=== PATIENT | male | born 1975 | race Hispanic/Latino ===

== ENCOUNTER 2016-06-03 18:49 | Inpatient (IN) | payer SELFPAY ==
[2016-06-03] MEDS ORDERED: NACL 0.9% 1000 ML 1,000 ML IV ONE (19:26)
[2016-06-03] MEDS ORDERED: CARDIZEM IV ONE ×2 (19:26→20:06)
--- NOTE | 2016-06-03 19:34 | Emergency Department Report ---
ED Chest Pain HPI - General Chief Complaint: Chest Pain Stated Complaint: HX A-FIB/ CHEST PRESSURE /DIZZINESS Time Seen by Provider: 06/03/16 19:25 Source: patient Mode of arrival: Ambulatory Limitations: No Limitations - History of Present Illness Initial Comments: 41-year-old male with history of hypertension, atrial fibrillation not on anticoagulation, CHF, chronic tobacco use presenting today because of palpitations. Patient states that the palpitations started yesterday morning and have been on-and-off and associated with some chest pain. He denies any symptoms currently. He has not had any cough or fever associated with this. No diaphoresis or shortness of breath. At triage he was found to be tachycardic. - Related Data Home Medications Medication Instructions Recorded Confirmed Last Taken Aspirin EC [Aspirin Enteric Coated 325 mg PO QDAY 04/03/15 06/03/16 05/14/15 TAB] Previous Rx's Medication Instructions Recorded Last Taken Type Carvedilol [Coreg] 25 mg PO Q12HR #60 tablet 04/08/15 05/12/15 Rx Furosemide [Lasix TAB] 40 mg PO 0600,1800 #60 tablet 04/08/15 05/14/15 Rx NIFEdipine XL [Procardia Xl] 60 mg PO QDAY #30 tablet 04/08/15 05/12/15 Rx Potassium Chloride [K-Dur] 20 meq PO QDAY #30 tablet 04/08/15 05/12/15 Rx Valsartan [Diovan] 160 mg PO DAILY #30 tablet 04/08/15 05/12/15 Rx Ferrous Sulfate [Feosol 325 MG tab] 325 mg PO BID #60 tablet 05/15/15 Unknown Rx Allergies Allergy/AdvReac Type Severity Reaction Status Date / Time No Known Allergies Allergy Verified 04/03/15 08:05 CHIRAG score - Chirag Score Age > 65: (0) No Aspirin use within the Past 7 Days: (0) No 3 or more CAD Risk Factors: (1) Yes 2 or more Angina events in past 24 hrs: (1) Yes Known CAD with more than 50% Stenosis: (0) No Elevated Cardiac Markers: (0) No ST Deviation Greater than 0.5mm: (0) No CHIRAG Score: 2 ED Review of Systems ROS: Stated complaint: HX A-FIB/ CHEST PRESSURE /DIZZINESS Other details as noted in HPI Comment: All other systems reviewed and negative Constitutional: denies: chills, fever Respiratory: denies: cough Cardiovascular: chest pain, palpitations Gastrointestinal: denies: abdominal pain, vomiting Genitourinary: denies: dysuria Skin: denies: rash Neurological: denies: headache Psychiatric: denies: anxiety ED Past Medical Hx - Past Medical History Hx Hypertension: Yes Hx Congestive Heart Failure: Yes Hx Diabetes: No Additional medical history: Afib. MOE - Surgical History Past Surgical History?: No - Social History Smoking Status: Current Every Day Smoker Substance Use Type: None - Medications Home Medications: Home Medications Medication Instructions Recorded Confirmed Last Taken Type Aspirin EC [Aspirin Enteric Coated 325 mg PO QDAY 04/03/15 06/03/16 05/14/15 History TAB] Carvedilol [Coreg] 25 mg PO Q12HR #60 tablet 04/08/15 06/03/16 05/12/15 Rx Furosemide [Lasix TAB] 40 mg PO 0600,1800 #60 tablet 04/08/15 06/03/16 05/14/15 Rx NIFEdipine XL [Procardia Xl] 60 mg PO QDAY #30 tablet 04/08/15 06/03/16 Rx Potassium Chloride [K-Dur] 20 meq PO QDAY #30 tablet 04/08/15 06/03/16 05/12/15 Rx Valsartan [Diovan] 160 mg PO DAILY #30 tablet 04/08/15 06/03/16 05/12/15 Rx Ferrous Sulfate [Feosol 325 MG tab] 325 mg PO BID #60 tablet 05/15/15 06/03/16 Unknown Rx ED Physical Exam - General Limitations: No Limitations General appearance: alert - Head Head exam: Present: atraumatic - Eye Eye exam: Present: normal appearance - ENT ENT exam: Present: normal exam - Neck Neck exam: Present: normal inspection - Respiratory Respiratory exam: Present: normal lung sounds bilaterally. Absent: respiratory distress - Cardiovascular Cardiovascular Exam: Present: tachycardia, irregular rhythm - GI/Abdominal GI/Abdominal exam: Present: soft. Absent: distended, tenderness - Neurological Exam Neurological exam: Present: alert, oriented X3 - Psychiatric Psychiatric exam: Present: normal affect - Skin Skin exam: Present: intact. Absent: rash ED Course Vital Signs 06/03/16 06/03/16 06/03/16 19:14 19:18 19:21 Temperature 98.2 F Pulse Rate 153 H 159 H Respiratory 18 Rate Blood Pressure 196/130 196/130 O2 Sat by Pulse 93 96 93 Oximetry 06/03/16 06/03/16 06/03/16 19:31 19:41 19:49 Temperature Pulse Rate 149 H 148 H 154 H Respiratory 20 25 H Rate Blood Pressure 178/112 178/112 178/112 O2 Sat by Pulse 93 Oximetry 06/03/16 06/03/16 06/03/16 19:51 20:00 20:10 Temperature Pulse Rate 148 H 150 H 148 H Respiratory 12 15 Rate Blood Pressure 150/111 174/108 174/108 O2 Sat by Pulse 92 89 Oximetry 06/03/16 06/03/16 06/03/16 20:11 20:21 20:31 Temperature Pulse Rate 147 H 146 H 148 H Respiratory 15 10 L 14 Rate Blood Pressure 174/108 164/104 158/101 O2 Sat by Pulse 90 90 Oximetry 06/03/16 06/03/16 06/03/16 20:41 20:51 21:01 Temperature Pulse Rate 150 H 149 H 151 H Respiratory 12 17 17 Rate Blood Pressure 158/101 157/103 161/109 O2 Sat by Pulse 89 92 92 Oximetry 06/03/16 06/03/16 06/03/16 21:08 21:11 21:16 Temperature Pulse Rate 148 H 148 H Respiratory 14 20 Rate Blood Pressure 161/108 161/109 O2 Sat by Pulse 93 94 Oximetry 06/03/16 06/03/16 06/03/16 21:21 21:30 21:41 Temperature Pulse Rate 147 H 149 H 148 H Respiratory 12 15 15 Rate Blood Pressure 154/112 160/106 160/106 O2 Sat by Pulse 93 93 97 Oximetry 06/03/16 06/03/16 06/03/16 21:51 22:00 22:11 Temperature Pulse Rate 148 H 148 H 149 H Respiratory 13 14 12 Rate Blood Pressure 161/115 158/105 158/105 O2 Sat by Pulse 95 93 95 Oximetry 06/03/16 06/03/16 06/03/16 22:21 22:30 22:41 Temperature Pulse Rate 150 H 149 H 150 H Respiratory 20 16 20 Rate Blood Pressure 159/110 147/112 147/112 O2 Sat by Pulse 92 94 91 Oximetry 06/03/16 06/03/16 06/03/16 22:51 23:00 23:11 Temperature Pulse Rate 150 H 150 H 147 H Respiratory 13 19 21 Rate Blood Pressure 151/111 155/113 155/113 O2 Sat by Pulse 93 93 94 Oximetry 06/03/16 06/03/16 06/03/16 23:21 23:23 23:30 Temperature Pulse Rate 143 H 148 H 144 H Respiratory 14 14 Rate Blood Pressure 164/112 164/112 164/112 O2 Sat by Pulse 93 95 Oximetry 06/03/16 06/03/16 06/04/16 23:41 23:50 00:00 Temperature Pulse Rate 143 H 140 H 142 H Respiratory 12 14 27 H Rate Blood Pressure 151/99 134/99 135/99 O2 Sat by Pulse 95 93 93 Oximetry ED Medical Decision Making - Lab Data Result diagrams: 06/03/16 19:28 06/03/16 22:11 - Medical Decision Making IV, labs, ekg, monitor, IVF, cardizem IV ekg shows atrial flutter with rvr Patient given small bolus of IV fluids given his history of CHF, given a dose of Cardizem IV 20 mg followed by a dose of 25 mg, there was a brief episode of rate control with a heart rate around 100 after the second dose but came back up to 140s to 150s. Spoke to Dr. Garcia from Cardiology who recommended a 5 mg dose of IV metoprolol every 2 hours until rate is controlled and to admit the patient to the CCU under the hospitalist. Critical Care Time: Yes Critical care time in (mins) excluding proc time.: 30 Critical care attestation.: If time is entered above; I have spent that time in minutes in the direct care of this critically ill patient, excluding procedure time. ED Disposition Clinical Impression: Atrial flutter with rapid ventricular response Disposition: OP ADMITTED IP TO THIS HOSP Is pt being admited?: Yes Does the pt Need Aspirin: Yes Condition: Serious
[2016-06-03 19:41] LABS: Basophils % (Auto) 0.5 % (0.0-1.8); Eosinophils % (Auto) 0.4 % (0.0-4.3); Mean Corpuscular HGB Conc 31 % (32-34); Mean Corpuscular Volume 74 fl (84-94); Platelet Count 197 K/mm3 (140-440); Red Blood Count 7.76 M/mm3 (3.65-5.03); Red Cell Distribution Width 18.8 % (13.2-15.2); White Blood Count 12.6 K/mm3 (4.5-11.0)
[2016-06-03 19:55] LABS: Hematocrit 57.4 % (35.5-45.6); Hemoglobin 17.8 gm/dl (11.8-15.2); Mean Corpuscular Hemoglobin 23 pg (28-32)
[2016-06-03] MEDS ORDERED: NACL 0.9% 500 ML 500 ML IV ONE (20:05)
[2016-06-03 20:07] LABS: Anion Gap TNR mmol/L; Carbon Dioxide TNR mmol/L (22-30); Chloride TNR mmol/L (98-107); Potassium TNR mmol/L (3.6-5.0); Sodium TNR mmol/L (137-145)
[2016-06-03 20:08] LABS: Blood Urea Nitrogen TNR mg/dL (9-20)
[2016-06-03 20:09] LABS: BUN/Creatinine Ratio TNR; Calcium TNR mg/dL (8.4-10.2); Glucose TNR mg/dL (75-100)
[2016-06-03] MEDS: CARDIZEM/D5W 100MG/100ML 100 MG/100 ML BAG IV SCH (21:08)
[2016-06-03 22:51] LABS: Anion Gap 20 mmol/L; BUN/Creatinine Ratio 18.57; Blood Urea Nitrogen 13 mg/dL (9-20); Calcium 8.7 mg/dL (8.4-10.2); Carbon Dioxide 26 mmol/L (22-30); Chloride 97.6 mmol/L (98-107); Glucose 106 mg/dL (75-100); Potassium 3.7 mmol/L (3.6-5.0); Sodium 140 mmol/L (137-145)
[2016-06-03] MEDS ORDERED: LOPRESSOR IV ONE (23:17)
[2016-06-04] MEDS ORDERED: BABY ASPIRIN PO ONE (00:25)
[2016-06-04] MEDS: CARDIZEM PO SCH ×5 (00:31→23:57)
[2016-06-04] MEDS ORDERED: TYLENOL PO PRN (00:42)
[2016-06-04] MEDS ORDERED: DULCOLAX PR PRN (00:42)
[2016-06-04] MEDS ORDERED: ZOFRAN IV PRN (00:42)
[2016-06-04] MEDS ORDERED: MILK OF MAGNESIA PO PRN (00:42)
--- NOTE | 2016-06-04 00:48 | History and Physical Report ---
History of Present Illness Date of examination: 06/04/16 History of present illness: 41-year-old man with a history of hypertension, A. fib /flutter, CHF, polycythemia vera, obstructive sleep apnea comes emergency room with complaints of palpitation that started yesterday. Has palpitation was associated with chest pain which she described as a stress pain, intermittent in nature lasting for less than 5 minutes, no radiation, intensity 4/10. Admits to nausea, shortness of breath, and no vomiting, diaphoresis. Patient has not been on any medication in the year. Patient was found to be in a flutter with rapid ventricular rate at 150s, he was started on Cardizem drip Patient denies cough, abdominal pain, hematochezia, dysuria, frequency, focal weakness, dysarthria, fever chills, polydipsia polyuria, hot or cold intolerance , easy bruisability, or rash or bleeding from mucosal membrane, rhinorrhea, epistaxis, earache, tinnitus, blurry vision, eye discharge, anxiety, depression. Other review of systems negative PAST SURGICAL HISTORY: None SOCIAL HISTORY: Alcohol quite a pack a day, no alcohol or drugs FAMILY HISTORY: Hypertension Medications and Allergies Allergies Allergy/AdvReac Type Severity Reaction Status Date / Time No Known Allergies Allergy Verified 04/03/15 08:05 Home Medications Medication Instructions Recorded Confirmed Last Taken Type Aspirin EC [Aspirin Enteric Coated 325 mg PO QDAY 04/03/15 06/03/16 05/14/15 History TAB] Carvedilol [Coreg] 25 mg PO Q12HR #60 tablet 04/08/15 06/03/16 05/12/15 Rx Furosemide [Lasix TAB] 40 mg PO 0600,1800 #60 tablet 04/08/15 06/03/16 05/14/15 Rx NIFEdipine XL [Procardia Xl] 60 mg PO QDAY #30 tablet 04/08/15 06/03/16 Rx Potassium Chloride [K-Dur] 20 meq PO QDAY #30 tablet 04/08/15 06/03/16 05/12/15 Rx Valsartan [Diovan] 160 mg PO DAILY #30 tablet 04/08/15 06/03/16 05/12/15 Rx Ferrous Sulfate [Feosol 325 MG tab] 325 mg PO BID #60 tablet 05/15/15 06/03/16 Unknown Rx Active Meds: Active Medications Diltiazem HCl (Cardizem) 60 mg PO Q6HR MAITE Last Admin: 06/04/16 00:31 Dose: 60 mg Diltiazem HCl (Cardizem/D5w 100mg/100ml) 100 mg in 100 mls @ 5 mls/hr IV TITR MAITE; 5 MG/HR PRN Reason: Protocol Last Titration: 06/03/16 21:38 Dose: 15 mg/hr, 15 mls/hr Exam - Physical Exam Narrative exam: Gen. appearance: Patient lying in bed, no apparent distress HEENT: Normocephalic, atraumatic, pupils equally round and reactive to light, extraocular movement intact, and no sclericterus,. No JVD or thyromegaly or nodule,neck supple, no carotid bruit ,mucous membranes moist, no exudate or erythema Heart: S1, S2, regular rate and rhythm Lungs: Clear to auscultation bilaterally, breathing comfortable Abdomen: Positive bowel sounds, nontender, nondistended, no organomegaly Extremity: No edema, cyanosis, clubbing Skin: No rash, nodules, warm, dry Neuro: Oriented 3, cranial nerves II-12 intact, speech is fluent, motor and sensory intact - Constitutional Vitals: Temp Pulse Resp BP Pulse Ox 98.2 F 144 H 27 H 144/105 93 06/03/16 19:18 06/04/16 00:31 06/04/16 00:00 06/04/16 00:31 06/04/16 00:00 Results - Labs CBC & Chem 7: 06/03/16 19:28 06/03/16 22:11 Labs: Abnormal lab results 06/03/16 06/03/16 06/03/16 Range/Units 19:28 19:33 20:53 WBC 12.6 H (4.5-11.0) K/mm3 RBC 7.76 H (3.65-5.03) M/mm3 Hgb 17.8 H (11.8-15.2) gm/dl Hct 57.4 H (35.5-45.6) % MCV 74 L (84-94) fl MCH 23 L (28-32) pg MCHC 31 L (32-34) % RDW 18.8 H (13.2-15.2) % Glasscock % (Auto) 7.4 H (0.0-7.3) % Glasscock # 0.9 H (0.0-0.8) K/mm3 Seg Neutrophils % 70.3 H (40.0-70.0) % Seg Neutrophils # 8.8 H (1.8-7.7) K/mm3 Chloride (98-107) mmol/L Creatinine (0.8-1.5) mg/dL Glucose (75-100) mg/dL NT-Pro-B Natriuret Pep 3655 H 3366 H (0-450) pg/mL 06/03/16 Range/Units 22:11 WBC (4.5-11.0) K/mm3 RBC (3.65-5.03) M/mm3 Hgb (11.8-15.2) gm/dl Hct (35.5-45.6) % MCV (84-94) fl MCH (28-32) pg MCHC (32-34) % RDW (13.2-15.2) % Glasscock % (Auto) (0.0-7.3) % [place]cock # (0.0-0.8) K/mm3 Seg Neutrophils % (40.0-70.0) % Seg Neutrophils # (1.8-7.7) K/mm3 Chloride 97.6 L (98-107) mmol/L Creatinine 0.7 L (0.8-1.5) mg/dL Glucose 106 H (75-100) mg/dL NT-Pro-B Natriuret Pep (0-450) pg/mL - Imaging and Cardiology EKG: image reviewed Chest x-ray: image reviewed Assessment and Plan A. fib flutter with RVR Hypertension Polycythemia vera MOE Obesity Admits medicine Continue Cardizem drip Check cardiac enzymes, echo, consult cardiology, critical care Start DVT prophylaxis
[2016-06-04] MEDS: LOPRESSOR IV PRN ×2 (01:25→09:00)
[2016-06-04 02:45] LABS: Creatine Kinase MB 1.8 ng/mL (0.0-4.0)
[2016-06-04 02:46] LABS: Creatine Kinase 60 units/L (55-170)
--- NOTE | 2016-06-04 08:45 | XRay Report ---
AP CHEST :06/03/16 18:49:00 CLINICAL: Difficulty breathing. COMPARISON:05/14/15 FINDINGS: Cardiomegaly and mild central vascular congestion. The central pulmonary vessels are slightly more prominent than on the prior exam. The lungs are normally expanded and clear. The bones and soft tissues are normal. IMPRESSION: Cardiomegaly and pulmonary venous hypertension. No pulmonary edema.
[2016-06-04] MEDS: CARDIZEM/D5W 100MG/100ML 100 MG/100 ML BAG IV SCH (08:59)
[2016-06-04] MEDS: LOVENOX SUB-Q SCH (09:00)
--- NOTE | 2016-06-04 09:01 | Admit Criteria Form ---
Admission Criteria Documentation: CARDIOLOGY GRG Clinical Indications for Admission to Inpatient Care ( Place 'X' for any and all applicable criteria): Hospital admission is needed for appropriate care of the patient because of ANY ONE of the following (1): [ ] I. Hemodynamic instability as indicated by ALL of the following (1)(2)(3) (4)(5) [ ]a) Vital signs or other findings not as expected for chronic patient condition or baseline [ ]b) Instability indicated by ANY ONE of the following: [ ]i) Hypotension [ ]ii) Symptomatic Tachycardia unresponsive to treatment ( e.g., analgesia, fluids, sedation as indicated) [ ]iii) Inadequate perfusion indicated by ANY ONE of the following: [ ] 1) Lactic acidosis (> 2 mmol/L) [ ] 2) New abnormal capillary refill (> 3 seconds) [ ] 3) Reduced urine output [ ] 4) New altered mental status [ ]iv) Orthostatic vital sign changes unresponsive to treatment (e.g., fluids) [ ]v) IV inotropic or vasopressor medication required to maintain adequate blood pressure or perfusion [ ] II. Severe heart failure as indicated by ANY ONE of the following(17)(18) [ ]a) Respiratory distress [ ]b) Hypotension [ ]c) Anasarca (refractory to outpatient therapy) [ ]d) Cardiac arrhythmias of immediate concern [ ]e) Myocardial ischemia [ ] III. Cardiac arrhythmias or findings of immediate concern indicated by ANY ONE of the following (19)(20): [ ] a) Heart rhythms that are inherently dangerous or unstable indicated by ANY ONE of the following (21)(22)(23): [ ] i) Resuscitated ventricular fibrillation or cardiac arrest [ ] ii) Ventricular escape rhythm [ ] iii) Sustained ventricular tachycardia (30 seconds or more of ventricular rhythm at greater than 100 beats per minute) [ ] iv) Nonsustained ventricular tachycardia and ANY ONE of the following: [ ] 1) Suspected cardiac ischemia as cause or consequence of ventricular tachycardia [ ] 2) In setting of acute myocarditis [ ] b) Unstable cardiac conduction defects indicated by ANY ONE of the following(23)(24)(25) [ ] i) Type II second-degree atrioventricular block [ ]ii) Third-degree atrioventricular block [ ]iii) New-onset left bundle branch block with suspected myocardial ischemia [ ]c) Any heart rhythm and ANY ONE of the following (21)(22)(26)(27) (28) [ ] i) Continuous long-term ECG monitoring needed (e.g., initiation of drug requiring monitoring for more than 24 hours) [ ] ii) Patient has automatic implanted cardioverter defibrillator that is repeatedly firing, malfunctioning, or in need of immediate adjustment of settings beyond the scope of ambulatory or observation care [ ]d) Heart rhythms of concern due to ANY ONE of the following: [ ] i) Hypotension [ ] ii) Respiratory distress [ ] iii) Association with other significant symptoms (e.g., bradycardia with syncope or ongoing dizziness, supraventricular tachycardia with chest pain (14)(15)(17) [ ] IV. Monitoring for cardiac contusion beyond the scope of observation care needed [A](30)(31)(32) [ ] V. Surgical or device complication (e.g., valve replacement complication , pacemaker dysfunction) (35)(41)(44)(45)(46) [ ] . Inpatient palliative care needed. [B](49) Also use Inpatient Palliative Care Criteria [ ] VII. Nonbacterial thrombotic (marantic) endocarditis (36)(43)(47)(48) [X ] VIII. Cardiology condition, symptom, or finding for which emergency and observation care has failed or are not considered appropriate. [ ] IX. Acute valvular disease requiring inpatient as indicated by ANY ONE of the following (41) [ ]a) Acute valvular regurgitation (42) [ ]b) Noninfectious valvulitis (43) [ ]c) Obstructive valve thrombosis [ ]d) Paravalvular leak [ ]e) Other significant valvular disorder remaining after emergency or observation level of care (as appropriate) [ ]X. Pericardial disease requiring inpatient treatment as indicated by ANY ONE of the following (33)(34)(35)(36)(37) [ ]a) Suspected tamponade (38)(39)(40) [ ]b) Hemopericardium [ ]c) Other significant pericardial disorder remaining after emergency or observation level of care (as appropriate) [ ] XI. Cardiac ischemia beyond scope of emergency and observation care. [ ] XII. Hypertension requiring inpatient treatment as indicated by ANY ONE of the following (6)(7)(8) [ ]a) SBP greater than 220 mm Hg or DBP greater than 120 mmHg despite treatment [ ]b) SBP greater than 140 mm Hg or DBP greater than 100 mm Hg with evidence of acute end organ damage as indicated by ANY ONE of the following [ ] i) Altered mental status [ ] ii) Acute renal failure as indicated by new onset of ANY ONE of the following (9)(10)(11)(12)(13) [ ]1) 3-fold rise in serum creatinine from baseline [ ]2) Serum creatinine greater than 4 mg/dL ( 354 micromoles/L) with acute rise greater than 0.5 mg/dL (44.2 micromoles/L) [ ]3) Reduction of more than 75% in estimated glomerular filtration rate from baseline [ ]4) Estimated glomerular filtration rate less than 35 mL/min/1.73m2 (0.59 mL/sec/1.73m2) in child up to 18 years of age [ ]5) Cessation of urine output indicated by ALL of the following [ ]A. Adequate volume status [ ]B. Inadequate urine output as indicated by ANY ONE of the following [ ]a. Urine output less than 0.3 mL/kg/hr for 24 hours [ ]b. Anuria (urine output less than 0.1 mL/kg/hr) for 12 hours [ ] iii) Aortic dissection [ ] iv) Myocardial Ischemia [ ] v) Left ventricular heart failure [ ]vi) Retinal Hemorrhage [ ]vii) Other significant finding [ ]c) Hypertension in child requiring inpatient treatment as indicated by ALL of the following(14)(15)(16) [ ] i) Outpatient treatment not effective, not available, or not appropriate [ ]ii) SBP or DBP greater than 95th percentile for age [ ]iii) Evidence of acute end organ damage as indicated by ANY ONE of the following [ ]1) Altered mental status [ ]2) Acute renal failure as indicated by new onset of ANY ONE of the following(9)(10)(11)(12)(13) [ ]A. 3-fold rise in serum creatinine from baseline [ ]B. Serum creatinine greater than 4 mg/dL (354 micromoles/L) with acute rise greater than 0.5 mg/dL (44.2 micromoles/L) [ ]C. Reduction of more than 75% in estimated glomerular filtration rate from baseline [ ]D. Estimated glomerular filtration rate less than 35 mL/min/1.73m2 (0.59 mL/sec/1.73m2) in child up to 18 years of age [ ]E. Cessation of urine output indicated by ALL of the following [ ]a. Adequate volume status [ ]b. Inadequate urine output as indicated by ANY ONE of the following [ ]i) Urine output less than 0.3 mL/kg/hr for 24 hours [ ]ii) Anuria ( urine output less than 0.1 mL/kg/hr) for 12 hours [ ]3) Severe headache [ ]4) Visual disturbance [ ]5) Retinal hemorrhage [ ]6) Other significant finding [ ]XIII. Complications of transplanted heart indicated by ANY ONE of the following(61): [ ]a) Acute graft rejection requiring inpatient management (eg, intravenous immunosuppression)(62)(63) [ ]b) Acute graft heart failure indicated by ANY ONE of the following(64): [ ]i) Hemodynamic instability [ ]ii) Cardiac arrhythmias of immediate concern [ ]iii) Pulmonary edema that is very severe (eg, mechanical ventilation needed, imminent or likely, need for 100% oxygen to keep oxygen saturation above 90%) [ ]iv) Pulmonary edema that is persistent as indicated by ALL of the following: [ ]1) New need for oxygen therapy to keep oxygen saturation above 90% (or increased FiO2 need from baseline) [ ]2) Has not improved sufficiently with emergency department or observation care IV diuretics or other heart failure treatments[E] [ ]v) Altered mental status that is severe or persistent [ ]vi) Increased creatinine (new on laboratory test) with reduction of more than 50% in estimated glomerular filtration rate from baseline [ ]vii) Progressively (ongoing) rising creatinine (known from past laboratory test) with reduction of more than 25% in estimated glomerular filtration rate from baseline [ ]viii) Acute renal failure [ ]ix) Acute peripheral ischemia (eg, examination shows pulseless, cool, mottled, or cyanotic extremity) [ ]x) Pulmonary artery catheter monitoring needed [ ]xi) Other sign or symptom of heart failure requiring inpatient treatment (ie, too severe or not responsive to outpatient and observation care treatment) [ ]c) Infection requiring inpatient management (eg, Hemodynamic instability, need for intravenous antimicrobial treatment)(66)(67)(68)(69)(70) [ ]d) Cardiac allograft vasculopathy requiring inpatient management ( eg evidence of cardiac ischemia)(71) [ ]e) Other complication of transplanted heart (eg, stroke, severe pulmonary hypertension, severe valvular dysfunction) requiring inpatient management(72) The original [facility] [employer] content created by [facility] has been revised. The portions of the content which have been revised are identified through the use of italic text or in bold, and [facility] has neither reviewed nor approved the modified material. All other unmodified content is copyright [facility] [employer]. Please see references footnoted in the original [facility] [employer] edition 2016 Admission Criteria Met: Yes
[2016-06-04 09:53] LABS: Basophils % (Auto) 0.7 % (0.0-1.8); Eosinophils % (Auto) 1.5 % (0.0-4.3); Hematocrit 52.1 % (35.5-45.6); Hemoglobin 16.6 gm/dl (11.8-15.2); Mean Corpuscular HGB Conc 32 % (32-34); Mean Corpuscular Volume 73 fl (84-94); Platelet Count 147 K/mm3 (140-440); Red Blood Count 7.15 M/mm3 (3.65-5.03); Red Cell Distribution Width 18.5 % (13.2-15.2); White Blood Count 10.8 K/mm3 (4.5-11.0)
[2016-06-04 09:59] LABS: Mean Corpuscular Hemoglobin 23 pg (28-32)
[2016-06-04 10:06] LABS: Anion Gap 25 mmol/L; Blood Urea Nitrogen 14 mg/dL (9-20); Carbon Dioxide 22 mmol/L (22-30); Chloride 99.1 mmol/L (98-107); Glucose 133 mg/dL (75-100); Potassium 3.9 mmol/L (3.6-5.0); Sodium 142 mmol/L (137-145)
[2016-06-04 10:16] LABS: Creatine Kinase 73 units/L (55-170); Creatine Kinase MB 1.9 ng/mL (0.0-4.0)
--- NOTE | 2016-06-04 11:01 | Consultation ---
History of Present Illness Consult date: 06/04/16 Requesting physician: FAVIO DELGADO Reason for consult: other History of present illness: PULMONARY/CCM CONSULT (Full dictation # [id number]) Please see dictated notes for full details Medications and Allergies Allergies Allergy/AdvReac Type Severity Reaction Status Date / Time No Known Allergies Allergy Verified 04/03/15 08:05 Home Medications Medication Instructions Recorded Confirmed Last Taken Type Aspirin EC [Aspirin Enteric Coated 325 mg PO QDAY 04/03/15 06/03/16 05/14/15 History TAB] Carvedilol [Coreg] 25 mg PO Q12HR #60 tablet 04/08/15 06/03/16 05/12/15 Rx Furosemide [Lasix TAB] 40 mg PO 0600,1800 #60 tablet 04/08/15 06/03/16 05/14/15 Rx NIFEdipine XL [Procardia Xl] 60 mg PO QDAY #30 tablet 04/08/15 06/03/16 Rx Potassium Chloride [K-Dur] 20 meq PO QDAY #30 tablet 04/08/15 06/03/16 05/12/15 Rx Valsartan [Diovan] 160 mg PO DAILY #30 tablet 04/08/15 06/03/16 05/12/15 Rx Ferrous Sulfate [Feosol 325 MG tab] 325 mg PO BID #60 tablet 05/15/15 06/03/16 Unknown Rx Active Meds: Active Medications Acetaminophen (Tylenol) 650 mg PO Q4H PRN PRN Reason: Pain MILD(1-3)/Fever >100.5/ESPOSITO Bisacodyl (Dulcolax) 10 mg [place] QDAY PRN PRN Reason: Constipation unrelieved by MOM Diltiazem HCl (Cardizem) 60 mg PO Q6HR MAITE Last Admin: 06/04/16 06:13 Dose: 60 mg Enoxaparin Sodium (Lovenox) 40 mg SUB-Q QDAY MAITE Last Admin: 06/04/16 09:00 Dose: 40 mg Diltiazem HCl (Cardizem/D5w 100mg/100ml) 100 mg in 100 mls @ 5 mls/hr IV TITR MAITE; 5 MG/HR PRN Reason: Protocol Last Admin: 06/04/16 08:59 Dose: 15 mg/hr, 15 mls/hr Magnesium Hydroxide (Milk Of Magnesia) 30 ml PO Q4H PRN PRN Reason: Constipation Metoprolol Tartrate (Lopressor) 5 mg IV Q2H PRN PRN Reason: Tachyarrhythmias Last Admin: 06/04/16 09:00 Dose: 5 mg Ondansetron HCl (Zofran) 4 mg IV Q8H PRN PRN Reason: N/V unrelieved by Reglan Physical Examination Vital signs: Vital Signs Pulse Ox 93 06/03/16 19:14 Results - Laboratory Findings CBC and BMP: 06/04/16 09:35 06/04/16 09:35 Abnormal lab findings: Abnormal Labs 06/04/16 06/04/16 09:35 09:35 RBC 7.15 H Hgb 16.6 H Hct 52.1 H MCV 73 L MCH 23 L RDW 18.5 H Ceiba % (Auto) 7.7 H Glucose 133 H
--- NOTE | 2016-06-04 11:20 | Progress Note ---
Assessment and Plan Assessment and plan: Atrial flutter. Cardiology consultation pending. Follow-up echocardiogram and cardiac isoenzymes. Continue Cardizem drip for now. Defer to cardiology with regards to anticoagulation. HTN. Resume antihypertensive medications. MOE/OHS. Pulmonary consultation pending. Obesity. Patient will be counseled weight loss. History Interval history: 41-year-old man with a history of hypertension, A. fib /flutter, CHF, polycythemia vera, obstructive sleep apnea comes emergency room with complaints of palpitation that started yesterday. Hospitalist Physical - Constitutional Vitals: Temp Pulse Resp BP Pulse Ox 98.2 F 144 H 19 138/99 97 06/04/16 08:00 06/04/16 09:00 06/04/16 06:00 06/04/16 09:00 06/04/16 09:30 General appearance: Present: no acute distress, well-nourished - EENT Eyes: Present: PERRL, EOM intact ENT: hearing intact, clear oral mucosa, dentition normal - Neck Neck: Present: supple, normal ROM - Respiratory Respiratory effort: normal Respiratory: bilateral: CTA - Cardiovascular Rhythm: regular Heart Sounds: Present: S1 & S2. Absent: gallop, rub - Extremities Extremities: no ischemia, No edema, Full ROM - Abdominal General gastrointestinal: soft, non-tender, non-distended, normal bowel sounds - Integumentary Integumentary: Present: clear, warm, dry - Neurologic Neurologic: CNII-XII intact, moves all extremities Results - Labs CBC & Chem 7: 06/04/16 09:35 06/04/16 09:35 Labs: Laboratory Last Values WBC 10.8 K/mm3 (4.5-11.0) 06/04/16 09:35 RBC 7.15 M/mm3 (3.65-5.03) H 06/04/16 09:35 Hgb 16.6 gm/dl (11.8-15.2) H 06/04/16 09:35 Hct 52.1 % (35.5-45.6) H 06/04/16 09:35 MCV 73 fl (84-94) L 06/04/16 09:35 MCH 23 pg (28-32) L 06/04/16 09:35 MCHC 32 % (32-34) 06/04/16 09:35 RDW 18.5 % (13.2-15.2) H 06/04/16 09:35 Plt Count 147 K/mm3 (140-440) 06/04/16 09:35 Lymph % (Auto) 29.0 % (13.4-35.0) 06/04/16 09:35 [place] % (Auto) 7.7 % (0.0-7.3) H 06/04/16 09:35 Eos % (Auto) 1.5 % (0.0-4.3) 06/04/16 09:35 Baso % (Auto) 0.7 % (0.0-1.8) 06/04/16 09:35 Lymph # 3.1 K/mm3 (1.2-5.4) 06/04/16 09:35 [place] # 0.8 K/mm3 (0.0-0.8) 06/04/16 09:35 Eos # 0.2 K/mm3 (0.0-0.4) 06/04/16 09:35 Baso # 0.1 K/mm3 (0.0-0.1) 06/04/16 09:35 Seg Neutrophils % 61.1 % (40.0-70.0) 06/04/16 09:35 Seg Neutrophils # 6.6 K/mm3 (1.8-7.7) 06/04/16 09:35 Sodium 142 mmol/L (137-145) 06/04/16 09:35 Potassium 3.9 mmol/L (3.6-5.0) 06/04/16 09:35 Chloride 99.1 mmol/L (98-107) 06/04/16 09:35 Carbon Dioxide 22 mmol/L (22-30) 06/04/16 09:35 Anion Gap 25 mmol/L 06/04/16 09:35 BUN 14 mg/dL (9-20) 06/04/16 09:35 Creatinine 0.8 mg/dL (0.8-1.5) 06/04/16 09:35 Estimated GFR > 60 ml/min 06/04/16 09:35 BUN/Creatinine Ratio 17.50 % 06/04/16 09:35 Glucose 133 mg/dL (75-100) H 06/04/16 09:35 Calcium 9.0 mg/dL (8.4-10.2) 06/04/16 09:35 Total Creatine Kinase 73 units/L (55-170) 06/04/16 09:35 CK-MB (CK-2) 1.9 ng/mL (0.0-4.0) 06/04/16 09:35 CK-MB (CK-2) Rel Index 2.6 (0-4) 06/04/16 09:35 Troponin T < 0.010 ng/mL (0.00-0.029) 06/04/16 09:35 NT-Pro-B Natriuret Pep 3366 pg/mL (0-450) H 06/03/16 20:53 TSH 1.070 mlU/mL (0.270-4.200) 06/03/16 22:11
[2016-06-04] MEDS: PEPCID PO SCH (11:50)
[2016-06-04] MEDS: HABITROL TD SCH (11:52)
[2016-06-04] MEDS: PROCARDIA XL PO SCH (13:21)
[2016-06-04] MEDS: DIOVAN PO SCH (13:21)
[2016-06-04] MEDS: COREG PO SCH ×2 (13:21→22:02)
[2016-06-04] MEDS ORDERED: APRESOLINE IV PRN (13:29)
--- NOTE | 2016-06-04 18:41 | Consultation ---
History of Present Illness Consult date: 06/04/16 Consult reason: atrial fibrillation History of present illness: 41-year-old man with multiple medical problems including morbid obesity, sleep apnea and COPD. He is noncompliant with medical management and medical follow- up. Presents to the hospital at this time with symptomatic atrial flutter. Atrial flutter with rapid ventricular response, which has now reverted to a stable sinus rhythm on Cardizem therapy. Patient of feels better in sinus rhythm. Prior cardiac workup includes an echocardiogram in March 2015, left ventricular ejection fraction was 50-55%. Past History Past Medical History: COPD, other (obesity, sleep apnea) Medications and Allergies Allergies Allergy/AdvReac Type Severity Reaction Status Date / Time No Known Allergies Allergy Verified 04/03/15 08:05 Home Medications Medication Instructions Recorded Confirmed Last Taken Type Aspirin EC [Aspirin Enteric Coated 325 mg PO QDAY 04/03/15 06/03/16 05/14/15 History TAB] Carvedilol [Coreg] 25 mg PO Q12HR #60 tablet 04/08/15 06/03/16 05/12/15 Rx Furosemide [Lasix TAB] 40 mg PO 0600,1800 #60 tablet 04/08/15 06/03/16 05/14/15 Rx NIFEdipine XL [Procardia Xl] 60 mg PO QDAY #30 tablet 04/08/15 06/03/16 Rx Potassium Chloride [K-Dur] 20 meq PO QDAY #30 tablet 04/08/15 06/03/16 05/12/15 Rx Valsartan [Diovan] 160 mg PO DAILY #30 tablet 04/08/15 06/03/16 05/12/15 Rx Ferrous Sulfate [Feosol 325 MG tab] 325 mg PO BID #60 tablet 05/15/15 06/03/16 Unknown Rx Active Meds: Active Medications Acetaminophen (Tylenol) 650 mg PO Q4H PRN PRN Reason: Pain MILD(1-3)/Fever >100.5/ESPOSITO Bisacodyl (Dulcolax) 10 mg AK QDAY PRN PRN Reason: Constipation unrelieved by MOM Carvedilol (Coreg) 25 mg PO Q12HR COUNT INCLUDES THE [facility] Last Admin: 06/04/16 13:21 Dose: 25 mg Diltiazem HCl (Cardizem) 60 mg PO Q6HR COUNT INCLUDES THE [facility] Last Admin: 06/04/16 17:28 Dose: 60 mg Enoxaparin Sodium (Lovenox) 40 mg SUB-Q QDAY COUNT INCLUDES THE [facility] Last Admin: 06/04/16 09:00 Dose: 40 mg Famotidine (Pepcid) 20 mg PO QDAY COUNT INCLUDES THE [facility] Last Admin: 06/04/16 11:50 Dose: 20 mg Hydralazine HCl (Apresoline) 10 mg IV Q4HR PRN PRN Reason: Blood Pressure Last Admin: 06/04/16 15:14 Dose: 10 mg Magnesium Hydroxide (Milk Of Magnesia) 30 ml PO Q4H PRN PRN Reason: Constipation Metoprolol Tartrate (Lopressor) 5 mg IV Q2H PRN PRN Reason: Tachyarrhythmias Last Admin: 06/04/16 09:00 Dose: 5 mg Nicotine (Habitrol) 21 mg TD QDAY COUNT INCLUDES THE [facility] Last Admin: 06/04/16 11:52 Dose: 21 mg Nifedipine (Procardia Xl) 60 mg PO QDAY COUNT INCLUDES THE [facility] Last Admin: 06/04/16 13:21 Dose: 60 mg Ondansetron HCl (Zofran) 4 mg IV Q8H PRN PRN Reason: N/V unrelieved by Reglan Valsartan (Diovan) 160 mg PO QDAY COUNT INCLUDES THE [facility] Last Admin: 06/04/16 13:21 Dose: 160 mg Review of Systems Cardiovascular: chest pain, palpitations, shortness of breath, no orthopnea, no rapid/irregular heart beat, no edema, no syncope, no lightheadedness Physical Examination Vital Signs Pulse Ox 93 06/03/16 19:14 General appearance: no acute distress, obese HEENT: Positive: PERRL Neck: Positive: neck supple Cardiac: Positive: Reg Rate and Rhythm Lungs: Positive: Decreased Breath Sounds Neuro: Positive: Grossly Intact Abdomen: Positive: Soft Male genitourinary: Positive: deferred Skin: Positive: Clear Extremities: Absent: edema Results 06/04/16 09:35 06/04/16 09:35 Cardiac Enzymes 06/04/16 06/04/16 Range/Units 01:38 09:35 CK-MB (CK-2) 1.8 1.9 (0.0-4.0) ng/mL CBC 06/04/16 Range/Units 09:35 WBC 10.8 (4.5-11.0) K/mm3 RBC 7.15 H (3.65-5.03) M/mm3 Hgb 16.6 H (11.8-15.2) gm/dl Hct 52.1 H (35.5-45.6) % Plt Count 147 (140-440) K/mm3 Lymph # 3.1 (1.2-5.4) K/mm3 [place] # 0.8 (0.0-0.8) K/mm3 Eos # 0.2 (0.0-0.4) K/mm3 Baso # 0.1 (0.0-0.1) K/mm3 Comprehensive Metabolic Panel 06/04/16 Range/Units 09:35 Sodium 142 (137-145) mmol/L Potassium 3.9 (3.6-5.0) mmol/L Chloride 99.1 (98-107) mmol/L Carbon Dioxide 22 (22-30) mmol/L BUN 14 (9-20) mg/dL Creatinine 0.8 (0.8-1.5) mg/dL Glucose 133 H (75-100) mg/dL Calcium 9.0 (8.4-10.2) mg/dL EKG interpretations - Telemetry EKG Rhythm: Atrial Flutter Assessment and Plan - Patient Problems (1) Atrial flutter with rapid ventricular response Current Visit: Yes Status: Acute Plan to address problem: Atrial flutter has resolved on medical management. Recommend initiation of oral anticoagulation therapy with Coumadin.
[2016-06-04 21:47] LABS: INR 1.04 (0.87-1.13)
--- NOTE | 2016-06-05 00:18 | Consultation ---
CONSULTING PHYSICIAN: Dr. Skinner. REASON FOR CONSULTATION: Critical care management, atrial fibrillation with rapid ventricular response. CHIEF COMPLAINT AND HISTORY OF PRESENT ILLNESS: The patient is a 41-year-old male with past medical history significant amongst other things for a diagnosis of obstructive sleep apnea, morbid obesity, but also atrial fibrillation that he said he last dealt with a few years back, came into the Emergency Room complaining of palpitations that started the day before. He was also having some chest pain, intermittent. It was atypical in nature. He did have some nausea, shortness of breath. No vomiting. No diaphoresis. He had not been taking any medications for about a year and he was found to be in AFib with an RVR, aflutter really with an RVR of 150s. He was started on a Cardizem drip and admitted to the intensive care unit. When I stopped by to see him, he was feeling much better. His rate was down in the 70s and 80s. He was on IV Cardizem drip, but was being titrated to p.o. Cardizem. He denied any acute chest pain. He admits to not been compliant also with his sleep apnea treatment, stated he never was able to get himself a CPAP machine. That really is as much of the history of presentation as I have. He does have a positive tobacco use history, about a pack a day, 10+ pack years or thereabouts. PAST MEDICAL HISTORY: Again, hypertension, atrial fibrillation/flutters, congestive heart failure, polycythemia vera, obstructive sleep apnea, morbid obesity. PAST SURGICAL HISTORY: Denied. MEDICATIONS: He was on at the time I stopped by to see him, according to the medication administration record included the following: Tylenol 650 mg p.o. q.4h. p.r.n. mild pain or for fevers, Coreg 25 mg p.o. q.12h., Cardizem 60 mg p.o. q.6h., Lovenox 40 mg subcutaneous daily, Pepcid 20 mg p.o. daily, Lopressor 5 mg IV q.12h. p.r.n. tachyarrhythmias, nicotine 21 mg per day transdermal patch, nifedipine 60 mg p.o. daily, Zofran 4 mg IV q.8h. p.r.n. nausea and vomiting, as well as Diovan 160 mg p.o. daily. ALLERGIES: No known drug allergies. DIET: Morbidly obese. Denies significant weight changes in the preceding few weeks to months. FAMILY AND SOCIAL HISTORY: Lives in the community. There is a family history of hypertension. He has a 10+ pack year tobacco smoking history. Denied alcohol or illicit drug use or abuse. REVIEW OF SYSTEMS: No loss of consciousness. No new onset seizures. No new onset focal weakness. No gross hematochezia or melena. No gross hematuria or dysuria. No hematemesis. No hemoptysis. He did have the palpitations prior. Complete review of systems obtained. Pertinent positives and/or negatives as in body of history above, otherwise they are noncontributory. PHYSICAL EXAMINATION: VITAL SIGNS: At presentation, he was afebrile, temperature 98.2, pulse 153, respiratory rate 18, blood pressure 196/130, oxygen sats were 93%. Inspired oxygen concentration was not recorded. HEAD, EYES, EARS, NOSE, AND THROAT: Pupils are equal, round, about 3-4 mm, reactive to light. Extraocular muscle movements are intact. Oropharynx is a Mallampati #4 oropharynx, grossly no palpable lymph nodes in the supraclavicular or submandibular lymph node chains. LUNGS: Auscultation of both lung salguero unremarkable. Lungs are clear bilaterally. HEART: Heart sounds 1 and 2 are heard. Irregular rate and rhythm at the time of my evaluation. ABDOMEN: Soft, full, bowel sounds are positive, nontender. EXTREMITIES: Without overt digital clubbing, cyanosis, or pedal edema. NEUROLOGIC: The exam was grossly nonfocal. LABORATORY DATA: From my review are as follows: White cell count 12,600, hemoglobin 17.8, hematocrit 57.4, platelets 197. Serum sodium was 140, potassium 3.7, chloride 98, bicarbonate 26, BUN 13, creatinine 0.7, glucose 106. BNP was elevated at 3655. RADIOGRAPHIC STUDIES: I am pulling up the x-ray. I have reviewed the radiologist's interpretation and essentially he reports the chest x-ray as cardiomegaly and pulmonary venous hypertension, no pulmonary edema. ASSESSMENT AND PLAN: We have a middle-aged gentleman in with atrial fibrillation, rapid ventricular response, rate is now better controlled. He has been seen by the pipe puller. We will be discussing with them the need for anticoagulation. I have explained to him that untreated sleep apnea is only going to make his comorbidities more difficult to control and increase his complication rate. He is appropriately on GI and has been placed on DVT prophylaxis. Flu and pneumonia vaccination will be per protocol. He probably could be transferred to the telemetry floor once he is off the IV Cardizem drip. Thank you very much for the consult. We will follow along. We will make further recommendations as picture progresses/becomes clearer. Finally, I have asked him to please be compliant with CPAP therapy and revisit his sleep physician when he does live the hospital. JOB# [id number] BRIAN/KAREN
[2016-06-05] MEDS: CARDIZEM PO SCH (05:39)
[2016-06-05 05:53] LABS: Basophils % (Auto) 0.3 % (0.0-1.8); Eosinophils % (Auto) 0.9 % (0.0-4.3); Hematocrit 49.4 % (35.5-45.6); Hemoglobin 15.8 gm/dl (11.8-15.2); Mean Corpuscular HGB Conc 32 % (32-34); Mean Corpuscular Volume 73 fl (84-94); Platelet Count 154 K/mm3 (140-440); Red Blood Count 6.75 M/mm3 (3.65-5.03); Red Cell Distribution Width 18.5 % (13.2-15.2); White Blood Count 11.7 K/mm3 (4.5-11.0)
[2016-06-05 06:03] LABS: INR 1.06 (0.87-1.13); Mean Corpuscular Hemoglobin 23 pg (28-32)
[2016-06-05 06:11] LABS: Anion Gap 19 mmol/L; BUN/Creatinine Ratio 18.18; Blood Urea Nitrogen 20 mg/dL (9-20); Calcium 8.5 mg/dL (8.4-10.2); Carbon Dioxide 26 mmol/L (22-30); Chloride 100.3 mmol/L (98-107); Glucose 115 mg/dL (75-100); Potassium 3.5 mmol/L (3.6-5.0); Sodium 142 mmol/L (137-145)
--- NOTE | 2016-06-05 09:43 | Progress Note ---
Assessment and Plan Assessment and plan: Atrial flutter. Cardiology recommends Coumadin for anticoagulation. We will start heparin IV for bridging. Continue Cardizem by mouth HTN. Resume antihypertensive medications. MOE/OHS. Pulmonary consultation pending. Obesity. Patient will be counseled weight loss. History Interval history: 41-year-old man with a history of hypertension, A. fib /flutter, CHF, polycythemia vera, obstructive sleep apnea comes emergency room with complaints of palpitation that started yesterday. Patient was admitted with atrial flutter with rapid ventricular response. Patient initially treated with Cardizem drip which has been weaned off. Hospitalist Physical - Constitutional Vitals: Temp Pulse Resp BP Pulse Ox 98.2 F 80 16 141/89 96 06/05/16 09:09 06/05/16 09:09 06/05/16 09:09 06/05/16 09:09 06/05/16 09:09 General appearance: Present: no acute distress, obese - EENT Eyes: Present: PERRL, EOM intact ENT: hearing intact, clear oral mucosa, dentition normal - Neck Neck: Present: supple, normal ROM - Respiratory Respiratory effort: normal Respiratory: bilateral: CTA - Cardiovascular Rhythm: regular Heart Sounds: Present: S1 & S2. Absent: gallop, rub - Extremities Extremities: no ischemia, No edema, Full ROM - Abdominal General gastrointestinal: soft, non-tender, non-distended, normal bowel sounds - Integumentary Integumentary: Present: clear, warm, dry - Neurologic Neurologic: CNII-XII intact, moves all extremities Results - Labs CBC & Chem 7: 06/05/16 04:40 06/05/16 04:40 Labs: Laboratory Last Values WBC 11.7 K/mm3 (4.5-11.0) H 06/05/16 04:40 RBC 6.75 M/mm3 (3.65-5.03) H 06/05/16 04:40 Hgb 15.8 gm/dl (11.8-15.2) H 06/05/16 04:40 Hct 49.4 % (35.5-45.6) H 06/05/16 04:40 MCV 73 fl (84-94) L 06/05/16 04:40 MCH 23 pg (28-32) L 06/05/16 04:40 MCHC 32 % (32-34) 06/05/16 04:40 RDW 18.5 % (13.2-15.2) H 06/05/16 04:40 Plt Count 154 K/mm3 (140-440) 06/05/16 04:40 Lymph % (Auto) 18.3 % (13.4-35.0) 06/05/16 04:40 [place] % (Auto) 6.1 % (0.0-7.3) 06/05/16 04:40 Eos % (Auto) 0.9 % (0.0-4.3) 06/05/16 04:40 Baso % (Auto) 0.3 % (0.0-1.8) 06/05/16 04:40 Lymph # 2.1 K/mm3 (1.2-5.4) 06/05/16 04:40 [place] # 0.7 K/mm3 (0.0-0.8) 06/05/16 04:40 Eos # 0.1 K/mm3 (0.0-0.4) 06/05/16 04:40 Baso # 0.0 K/mm3 (0.0-0.1) 06/05/16 04:40 Seg Neutrophils % 74.4 % (40.0-70.0) H 06/05/16 04:40 Seg Neutrophils # 8.7 K/mm3 (1.8-7.7) H 06/05/16 04:40 PT 13.7 Sec. (12.2-14.9) 06/05/16 04:40 INR 1.06 (0.87-1.13) 06/05/16 04:40 Sodium 142 mmol/L (137-145) 06/05/16 04:40 Potassium 3.5 mmol/L (3.6-5.0) L 06/05/16 04:40 Chloride 100.3 mmol/L (98-107) 06/05/16 04:40 Carbon Dioxide 26 mmol/L (22-30) 06/05/16 04:40 Anion Gap 19 mmol/L 06/05/16 04:40 BUN 20 mg/dL (9-20) 06/05/16 04:40 Creatinine 1.1 mg/dL (0.8-1.5) 06/05/16 04:40 Estimated GFR > 60 ml/min 06/05/16 04:40 BUN/Creatinine Ratio 18.18 % 06/05/16 04:40 Glucose 115 mg/dL (75-100) H 06/05/16 04:40 Calcium 8.5 mg/dL (8.4-10.2) 06/05/16 04:40 Total Creatine Kinase 73 units/L (55-170) 06/04/16 09:35 CK-MB (CK-2) 1.9 ng/mL (0.0-4.0) 06/04/16 09:35 CK-MB (CK-2) Rel Index 2.6 (0-4) 06/04/16 09:35 Troponin T < 0.010 ng/mL (0.00-0.029) 06/04/16 09:35 NT-Pro-B Natriuret Pep 3366 pg/mL (0-450) H 06/03/16 20:53 TSH 1.070 mlU/mL (0.270-4.200) 06/03/16 22:11
[2016-06-05] MEDS: COREG PO SCH (09:47)
[2016-06-05] MEDS: LOVENOX SUB-Q SCH (09:47)
[2016-06-05] MEDS: DIOVAN PO SCH (09:47)
[2016-06-05] MEDS: PEPCID PO SCH (09:47)
[2016-06-05] MEDS: HABITROL TD SCH (09:48)
[2016-06-05] MEDS: PROCARDIA XL PO SCH (09:48)
[2016-06-05] MEDS ORDERED: HEPARIN 10,000 UNITS/10 ML IV ONE (10:15)
--- NOTE | 2016-06-05 10:26 | Progress Note ---
Assessment and Plan Atrial flutter, now reverted to a sinus rhythm to initiate on warfarin today Hypertension Sleep apnea Obese Recommendations: Oral anticoagulation with warfarin for stroke prophylaxis. Metoprolol for suppression of Atrial flutter. Optimal medical therapy for hypertension with amlodipine and lisinopril. Subjective Date of service: 06/05/16 Interval history: Patient reports he is feeling better. Remains in a stable sinus rhythm on telemetry. Objective Vital Signs Temp Pulse Pulse Pulse Pulse Pulse Resp 06/05/16 10:05 06/05/16 09:47 80 06/05/16 09:09 98.2 F 80 16 06/05/16 05:40 98.0 F 68 20 06/05/16 04:10 68 20 06/05/16 00:45 97.6 F 69 20 06/04/16 22:00 70 06/04/16 21:49 2 L 06/04/16 20:29 06/04/16 20:10 98.8 F 81 20 06/04/16 17:28 96 H 06/04/16 17:00 98.1 F 96 H 16 06/04/16 16:00 80 13 06/04/16 15:46 98.4 F 06/04/16 15:14 81 06/04/16 15:12 06/04/16 15:00 74 14 06/04/16 14:00 72 17 06/04/16 13:21 77 06/04/16 13:00 68 14 06/04/16 12:00 98.1 F 73 12 06/04/16 11:51 72 06/04/16 11:00 73 18 BP BP Pulse Ox 06/05/16 10:05 93 06/05/16 09:47 141/89 06/05/16 09:09 141/89 96 06/05/16 05:40 134/74 95 06/05/16 04:10 134/74 06/05/16 00:45 115/77 95 06/04/16 22:00 06/04/16 21:49 06/04/16 20:29 95 06/04/16 20:10 110/71 91 06/04/16 17:28 173/99 06/04/16 17:00 173/99 94 06/04/16 16:00 155/96 93 06/04/16 15:46 06/04/16 15:14 171/111 04/20/17 15:12 165/98 06/04/16 15:00 171/111 92 06/04/16 14:00 153/95 93 06/04/16 13:21 173/110 06/04/16 13:00 173/110 92 06/04/16 12:00 160/112 96 06/04/16 11:51 162/105 06/04/16 11:00 162/105 93 - Physical Examination General: No Apparent Distress HEENT: Positive: PERRL Neck: Positive: neck supple Cardiac: Positive: Reg Rate and Rhythm Lungs: Positive: Decreased Breath Sounds Neuro: Positive: Grossly Intact Extremities: Absent: edema - Labs and Meds Coagulation 06/04/16 06/05/16 Range/Units 21:06 04:40 PT 13.5 13.7 (12.2-14.9) Sec. INR 1.04 1.06 (0.87-1.13) CBC 06/05/16 Range/Units 04:40 WBC 11.7 H (4.5-11.0) K/mm3 RBC 6.75 H (3.65-5.03) M/mm3 Hgb 15.8 H (11.8-15.2) gm/dl Hct 49.4 H (35.5-45.6) % Plt Count 154 (140-440) K/mm3 Lymph # 2.1 (1.2-5.4) K/mm3 [place] # 0.7 (0.0-0.8) K/mm3 Eos # 0.1 (0.0-0.4) K/mm3 Baso # 0.0 (0.0-0.1) K/mm3 Comprehensive Metabolic Panel 06/05/16 Range/Units 04:40 Sodium 142 (137-145) mmol/L Potassium 3.5 L (3.6-5.0) mmol/L Chloride 100.3 (98-107) mmol/L Carbon Dioxide 26 (22-30) mmol/L BUN 20 (9-20) mg/dL Creatinine 1.1 (0.8-1.5) mg/dL Glucose 115 H (75-100) mg/dL Calcium 8.5 (8.4-10.2) mg/dL - Imaging and Cardiology EKG: image reviewed
[2016-06-05 10:28] LABS: INR 1.14 (0.87-1.13)
[2016-06-05 10:29] LABS: Partial Thromboplastin Time 33.9 Sec. (24.2-36.6)
--- NOTE | 2016-06-05 10:33 | Progress Note ---
Assessment and Plan - Patient Problems (1) Atrial flutter with rapid ventricular response Current Visit: Yes Status: Acute Plan to address problem: - rate controlled - per cardiology otherwise - continue anticoagulation (2) Acute and chronic respiratory failure with hypoxia Current Visit: No Status: Acute Plan to address problem: - wean oxygen for O2 Sats > 94% - suspect has required oxygen for a while particularly while aslepp - will need home oxygen at discharge if does not wean - prn bronchodilators and pulmonary toilet - doubt VTE but on anticoagulation for A-fib (3) Obstructive sleep apnea Current Visit: No Status: Chronic Plan to address problem: - will need outpatient PSG - needs help with getting a CPAP machine Subjective Date of service: 06/05/16 Principal diagnosis: Atrial Fib with RVR; MOE; Acute Hypoxemic Respiratory Failure Interval history: Seen and examined at bedside; 24 hour events reviewed; nursing and respiratory care staff consulted; no adverse overnight events reported to me; remains on supplemental oxygen; denies acute chest pains or increased SOB; No emesis or overt aspiration Objective Vital Signs - 12hr 06/05/16 06/05/16 06/05/16 00:45 04:10 05:40 Temperature 97.6 F 98.0 F Pulse Rate Pulse Rate [ 68 From Monitor] Pulse Rate [ 69 Left Radial] Pulse Rate [ 68 Right Radial] Respiratory 20 20 20 Rate Blood Pressure Blood Pressure 115/77 134/74 134/74 [Left Radial Artery] O2 Sat by Pulse 95 95 Oximetry 06/05/16 06/05/16 06/05/16 09:09 09:47 10:05 Temperature 98.2 F Pulse Rate 80 Pulse Rate [ From Monitor] Pulse Rate [ 80 Left Radial] Pulse Rate [ Right Radial] Respiratory 16 Rate Blood Pressure 141/89 Blood Pressure 141/89 [Left Radial Artery] O2 Sat by Pulse 96 93 Oximetry Constitutional: no acute distress, alert Eyes: non-icteric ENT: oropharynx moist Neck: supple, no lymphadenopathy Effort: mildly labored Ascultation: Bilateral: clear, diminished breath sounds Cardiovascular: irregular rhythm Gastrointestinal: normoactive bowel sounds, soft, non-tender, non-distended Integumentary: normal Extremities: no cyanosis, pink and warm, pulses normal, edema Neurologic: normal mental status, non-focal exam, pupils equal and round, motor strength normal and Psychiatric: mood appropriate, affect normal CBC and BMP: 06/07/16 04:51 06/07/16 07:59 ABG, PT/INR, D-dimer: PT/INR, D-dimer PT 14.5 Sec. (12.2-14.9) 06/05/16 10:06 INR 1.14 (0.87-1.13) H 06/05/16 10:06 Abnormal lab findings: Abnormal Labs 06/04/16 06/04/16 06/05/16 09:35 09:35 04:40 WBC 11.7 H RBC 7.15 H 6.75 H Hgb 16.6 H 15.8 H Hct 52.1 H 49.4 H MCV 73 L 73 L MCH 23 L 23 L RDW 18.5 H 18.5 H [place] % (Auto) 7.7 H Seg Neutrophils % 74.4 H Seg Neutrophils # 8.7 H INR Potassium Glucose 133 H 06/05/16 06/05/16 04:40 10:06 WBC RBC Hgb Hct MCV MCH RDW [place] % (Auto) Seg Neutrophils % Seg Neutrophils # INR 1.14 H Potassium 3.5 L Glucose 115 H Chest x-ray: image reviewed
[2016-06-05 10:36] LABS: Hematocrit 49.8 % (35.5-45.6); Hemoglobin 15.8 gm/dl (11.8-15.2)
[2016-06-05] MEDS: HEPARIN/ 0.45% NACL-25,000 UNIT/500 ML 25,000 UNITS/500 ML BAG IV SCH (11:28)
[2016-06-05] MEDS: COUMADIN PO SCH (17:05)
[2016-06-05] MEDS: LOPRESSOR PO SCH (22:54)
[2016-06-06 02:40] LABS: INR 1.17 (0.87-1.13)
[2016-06-06] MEDS: HEPARIN/ 0.45% NACL-25,000 UNIT/500 ML 25,000 UNITS/500 ML BAG IV SCH ×2 (03:50→12:24)
[2016-06-06 06:06] LABS: Basophils % (Auto) 0.6 % (0.0-1.8); Eosinophils % (Auto) 1.6 % (0.0-4.3); Hematocrit 49.7 % (35.5-45.6); Hemoglobin 15.8 gm/dl (11.8-15.2); Mean Corpuscular HGB Conc 32 % (32-34); Mean Corpuscular Volume 74 fl (84-94); Platelet Count 158 K/mm3 (140-440); Red Blood Count 6.71 M/mm3 (3.65-5.03); White Blood Count 12.5 K/mm3 (4.5-11.0)
[2016-06-06 06:38] LABS: Mean Corpuscular Hemoglobin 24 pg (28-32)
[2016-06-06 09:19] LABS: Anion Gap 17 mmol/L; BUN/Creatinine Ratio 24.28; Blood Urea Nitrogen 17 mg/dL (9-20); Calcium 8.8 mg/dL (8.4-10.2); Carbon Dioxide 27 mmol/L (22-30); Chloride 97.6 mmol/L (98-107); Glucose 92 mg/dL (75-100); Sodium 138 mmol/L (137-145)
[2016-06-06] MEDS: PEPCID PO SCH (10:10)
[2016-06-06] MEDS: HABITROL TD SCH (10:10)
[2016-06-06] MEDS: LOPRESSOR PO SCH ×2 (10:11→21:58)
[2016-06-06] MEDS: NORVASC PO SCH (10:11)
[2016-06-06] MEDS: ZESTRIL PO SCH (10:11)
--- NOTE | 2016-06-06 11:20 | Progress Note ---
Assessment and Plan Assessment and plan: Atrial flutter. Continue Lopressor, heparin drip/Coumadin. HTN. Continue lisinopril and hydralazine when necessary. MOE/OHS. Pulmonary following. Obesity. Patient will be counseled regarding weight loss. History Interval history: 41-year-old man with a history of hypertension, A. fib /flutter, CHF, polycythemia vera, obstructive sleep apnea comes emergency room with complaints of palpitation that started yesterday. Patient was admitted with atrial flutter with rapid ventricular response. Patient initially treated with Cardizem drip which has been weaned off. Patient currently was sinus rhythm Hospitalist Physical - Constitutional Vitals: Temp Pulse Resp BP Pulse Ox 98.1 F 68 20 146/91 96 06/06/16 08:22 06/06/16 08:22 06/06/16 08:22 06/06/16 08:22 06/06/16 08:22 General appearance: Present: no acute distress, obese - EENT Eyes: Present: PERRL, EOM intact ENT: hearing intact, clear oral mucosa, dentition normal - Neck Neck: Present: supple, normal ROM - Respiratory Respiratory effort: normal Respiratory: bilateral: CTA - Cardiovascular Rhythm: regular Heart Sounds: Present: S1 & S2. Absent: gallop, rub - Extremities Extremities: no ischemia, No edema, Full ROM - Abdominal General gastrointestinal: soft, non-tender, non-distended, normal bowel sounds - Integumentary Integumentary: Present: clear, warm, dry - Neurologic Neurologic: CNII-XII intact, moves all extremities Results - Labs CBC & Chem 7: 06/06/16 04:24 06/06/16 08:33 Labs: Laboratory Last Values WBC 12.5 K/mm3 (4.5-11.0) H 06/06/16 04:24 RBC 6.71 M/mm3 (3.65-5.03) H 06/06/16 04:24 Hgb 15.8 gm/dl (11.8-15.2) H 06/06/16 04:24 Hct 49.7 % (35.5-45.6) H 06/06/16 04:24 MCV 74 fl (84-94) L 06/06/16 04:24 MCH 24 pg (28-32) L 06/06/16 04:24 MCHC 32 % (32-34) 06/06/16 04:24 RDW 19.0 % (13.2-15.2) H 06/06/16 04:24 Plt Count 158 K/mm3 (140-440) 06/06/16 04:24 Lymph % (Auto) 24.7 % (13.4-35.0) 06/06/16 04:24 [place] % (Auto) 7.2 % (0.0-7.3) 06/06/16 04:24 Eos % (Auto) 1.6 % (0.0-4.3) 06/06/16 04:24 Baso % (Auto) 0.6 % (0.0-1.8) 06/06/16 04:24 Lymph # 3.1 K/mm3 (1.2-5.4) 06/06/16 04:24 [place] # 0.9 K/mm3 (0.0-0.8) H 06/06/16 04:24 Eos # 0.2 K/mm3 (0.0-0.4) 06/06/16 04:24 Baso # 0.1 K/mm3 (0.0-0.1) 06/06/16 04:24 Seg Neutrophils % 65.9 % (40.0-70.0) 06/06/16 04:24 Seg Neutrophils # 8.2 K/mm3 (1.8-7.7) H 06/06/16 04:24 PT 14.8 Sec. (12.2-14.9) 06/06/16 01:34 INR 1.17 (0.87-1.13) H 06/06/16 01:34 APTT 33.9 Sec. (24.2-36.6) 06/05/16 10:06 Heparin Anti-Xa Level 0.22 U.I./ml (0.3-0.7) L 06/06/16 10:15 Sodium 142 mmol/L (137-145) 06/05/16 04:40 Potassium 3.5 mmol/L (3.6-5.0) L 06/05/16 04:40 Chloride 100.3 mmol/L (98-107) 06/05/16 04:40 Carbon Dioxide 27 mmol/L (22-30) 06/06/16 08:33 Anion Gap 19 mmol/L 06/05/16 04:40 BUN 17 mg/dL (9-20) 06/06/16 08:33 Creatinine 0.7 mg/dL (0.8-1.5) L 06/06/16 08:33 Estimated GFR > 60 ml/min 06/06/16 08:33 BUN/Creatinine Ratio 24.28 % 06/06/16 08:33 Glucose 92 mg/dL (75-100) 06/06/16 08:33 Calcium 8.8 mg/dL (8.4-10.2) 06/06/16 08:33 Total Creatine Kinase 73 units/L (55-170) 06/04/16 09:35 CK-MB (CK-2) 1.9 ng/mL (0.0-4.0) 06/04/16 09:35 CK-MB (CK-2) Rel Index 2.6 (0-4) 06/04/16 09:35 Troponin T < 0.010 ng/mL (0.00-0.029) 06/04/16 09:35 NT-Pro-B Natriuret Pep 3366 pg/mL (0-450) H 06/03/16 20:53 TSH 1.070 mlU/mL (0.270-4.200) 06/03/16 22:11
--- NOTE | 2016-06-06 13:13 | Progress Note ---
Assessment and Plan (1) Atrial flutter with rapid ventricular response Current Visit: Yes Status: Acute Plan to address problem: - rate controlled - per cardiology otherwise - continue anticoagulation (2) Acute and chronic respiratory failure with hypoxia Current Visit: No Status: Acute Plan to address problem: - wean oxygen for O2 Sats > 94% - suspect has required oxygen for a while particularly while asleep - will need home oxygen at discharge if does not wean (ordered today) - prn bronchodilators and pulmonary toilet - doubt VTE but on anticoagulation for A-fib (3) Obstructive sleep apnea Current Visit: No Status: Chronic Plan to address problem: - will need outpatient PSG - needs help with getting a CPAP machine Subjective Date of service: 06/06/16 Principal diagnosis: Acute Hypoxxemic Resp Failure; Atrial Fib with RVR Interval history: Seen and examined at bedside; 24 hour events reviewed; nursing and respiratory care staff consulted; no adverse overnight events reported to me; no new issues respiratory-strong Objective Vital Signs - 12hr 06/06/16 06/06/16 06/06/16 05:14 08:22 10:00 Temperature 98.6 F 98.1 F Pulse Rate 79 Pulse Rate [ 68 68 From Monitor] Pulse Rate [ 68 Right Radial] Respiratory 20 20 20 Rate Blood Pressure 134/86 146/91 [Right Arm] O2 Sat by Pulse 96 96 Oximetry 06/06/16 12:37 Temperature 99.4 F Pulse Rate Pulse Rate [ From Monitor] Pulse Rate [ 70 Right Radial] Respiratory 18 Rate Blood Pressure 167/86 [Right Arm] O2 Sat by Pulse 92 Oximetry Constitutional: no acute distress, alert Eyes: non-icteric ENT: oropharynx moist Neck: supple, no lymphadenopathy Effort: normal Ascultation: Bilateral: clear, diminished breath sounds Cardiovascular: irregular rhythm Gastrointestinal: normoactive bowel sounds, soft, non-tender, non-distended Integumentary: normal Extremities: no cyanosis, pink and warm, pulses normal, edema Neurologic: normal mental status, non-focal exam, pupils equal and round, motor strength normal and Psychiatric: mood appropriate, affect normal CBC and BMP: 06/07/16 04:51 06/07/16 07:59 ABG, PT/INR, D-dimer: PT/INR, D-dimer PT 14.8 Sec. (12.2-14.9) 06/06/16 01:34 INR 1.17 (0.87-1.13) H 06/06/16 01:34 Abnormal lab findings: Abnormal Labs 06/04/16 06/04/16 06/05/16 09:35 09:35 04:40 WBC 11.7 H RBC 7.15 H 6.75 H Hgb 16.6 H 15.8 H Hct 52.1 H 49.4 H MCV 73 L 73 L MCH 23 L 23 L RDW 18.5 H 18.5 H [place] % (Auto) 7.7 H [place] # Seg Neutrophils % 74.4 H Seg Neutrophils # 8.7 H INR Heparin Anti-Xa Level Potassium Creatinine Glucose 133 H 06/05/16 06/05/16 06/05/16 04:40 10:06 10:06 WBC RBC Hgb 15.8 H Hct 49.8 H MCV MCH RDW [place] % (Auto) [place] # Seg Neutrophils % Seg Neutrophils # INR 1.14 H Heparin Anti-Xa Level Potassium 3.5 L Creatinine Glucose 115 H 06/06/16 06/06/16 06/06/16 01:34 04:24 08:33 WBC 12.5 H RBC 6.71 H Hgb 15.8 H Hct 49.7 H MCV 74 L MCH 24 L RDW 19.0 H [place] % (Auto) [place] # 0.9 H Seg Neutrophils % Seg Neutrophils # 8.2 H INR 1.17 H Heparin Anti-Xa Level 0.27 L Potassium Creatinine 0.7 L Glucose 06/06/16 10:15 WBC RBC Hgb Hct MCV MCH RDW [place] % (Auto) [place] # Seg Neutrophils % Seg Neutrophils # INR Heparin Anti-Xa Level 0.22 L Potassium Creatinine Glucose
[2016-06-06] MEDS: COUMADIN PO SCH (17:02)
[2016-06-07 03:45] LABS: INR 1.4 (0.87-1.13)
[2016-06-07 05:36] LABS: Basophils % (Auto) 0.3 % (0.0-1.8); Eosinophils % (Auto) 1.6 % (0.0-4.3); Hematocrit 49.3 % (35.5-45.6); Hemoglobin 15.6 gm/dl (11.8-15.2); Mean Corpuscular HGB Conc 32 % (32-34); Mean Corpuscular Volume 73 fl (84-94); Platelet Count 136 K/mm3 (140-440); Red Blood Count 6.72 M/mm3 (3.65-5.03); Red Cell Distribution Width 19.2 % (13.2-15.2); White Blood Count 9.8 K/mm3 (4.5-11.0)
[2016-06-07 05:38] LABS: Mean Corpuscular Hemoglobin 23 pg (28-32)
[2016-06-07 08:34] LABS: Anion Gap 21 mmol/L; Blood Urea Nitrogen 14 mg/dL (9-20); Calcium 8.8 mg/dL (8.4-10.2); Carbon Dioxide 26 mmol/L (22-30); Chloride 98.8 mmol/L (98-107); Glucose 68 mg/dL (75-100); Potassium 3.5 mmol/L (3.6-5.0); Sodium 142 mmol/L (137-145)
[2016-06-07] MEDS: NORVASC PO SCH (09:51)
[2016-06-07] MEDS: PEPCID PO SCH (09:51)
[2016-06-07] MEDS: ZESTRIL PO SCH (09:52)
[2016-06-07] MEDS: HABITROL TD SCH (09:53)
[2016-06-07] MEDS: LOPRESSOR PO SCH ×2 (09:53→22:21)
[2016-06-07] MEDS: HEPARIN/ 0.45% NACL-25,000 UNIT/500 ML 25,000 UNITS/500 ML BAG IV SCH (10:02)
--- NOTE | 2016-06-07 10:09 | Progress Note ---
Assessment and Plan Assessment and plan: Atrial flutter. Continue Lopressor, heparin drip/Coumadin. Goal INR 2-3 HTN. Continue lisinopril and hydralazine when necessary. MOE/OHS. Pulmonary following. Obesity. Patient will be counseled regarding weight loss. History Interval history: 41-year-old man with a history of hypertension, A. fib /flutter, CHF, polycythemia vera, obstructive sleep apnea comes emergency room with complaints of palpitation that started yesterday. Patient was admitted with atrial flutter with rapid ventricular response. Patient initially treated with Cardizem drip which has been weaned off. Patient currently was sinus rhythm Hospitalist Physical - Constitutional Vitals: Temp Pulse Resp BP Pulse Ox 98.9 F 66 20 157/90 93 06/07/16 10:05 06/07/16 10:05 06/07/16 10:05 06/07/16 10:05 06/07/16 10:05 General appearance: Present: no acute distress, obese - EENT Eyes: Present: PERRL, EOM intact ENT: hearing intact, clear oral mucosa, dentition normal - Neck Neck: Present: supple, normal ROM - Respiratory Respiratory effort: normal Respiratory: bilateral: CTA - Cardiovascular Rhythm: regular Heart Sounds: Present: S1 & S2. Absent: gallop, rub - Extremities Extremities: no ischemia, No edema, Full ROM - Abdominal General gastrointestinal: soft, non-tender, non-distended, normal bowel sounds - Integumentary Integumentary: Present: clear, warm, dry - Neurologic Neurologic: CNII-XII intact, moves all extremities Results - Labs CBC & Chem 7: 06/07/16 04:51 06/07/16 07:59 Labs: Laboratory Last Values WBC 9.8 K/mm3 (4.5-11.0) 06/07/16 04:51 RBC 6.72 M/mm3 (3.65-5.03) H 06/07/16 04:51 Hgb 15.6 gm/dl (11.8-15.2) H 06/07/16 04:51 Hct 49.3 % (35.5-45.6) H 06/07/16 04:51 MCV 73 fl (84-94) L 06/07/16 04:51 MCH 23 pg (28-32) L 06/07/16 04:51 MCHC 32 % (32-34) 06/07/16 04:51 RDW 19.2 % (13.2-15.2) H 06/07/16 04:51 Plt Count 136 K/mm3 (140-440) L 06/07/16 04:51 Lymph % (Auto) 20.6 % (13.4-35.0) 06/07/16 04:51 [place] % (Auto) 8.4 % (0.0-7.3) H 06/07/16 04:51 Eos % (Auto) 1.6 % (0.0-4.3) 06/07/16 04:51 Baso % (Auto) 0.3 % (0.0-1.8) 06/07/16 04:51 Lymph # 2.0 K/mm3 (1.2-5.4) 06/07/16 04:51 [place] # 0.8 K/mm3 (0.0-0.8) 06/07/16 04:51 Eos # 0.2 K/mm3 (0.0-0.4) 06/07/16 04:51 Baso # 0.0 K/mm3 (0.0-0.1) 06/07/16 04:51 Seg Neutrophils % 69.1 % (40.0-70.0) 06/07/16 04:51 Seg Neutrophils # 6.8 K/mm3 (1.8-7.7) 06/07/16 04:51 PT 17.1 Sec. (12.2-14.9) H 06/07/16 03:03 INR 1.40 (0.87-1.13) H 06/07/16 03:03 APTT 33.9 Sec. (24.2-36.6) 06/05/16 10:06 Heparin Anti-Xa Level 0.27 U.I./ml (0.3-0.7) L 06/07/16 03:03 Sodium 142 mmol/L (137-145) 06/07/16 07:59 Potassium 3.5 mmol/L (3.6-5.0) L 06/07/16 07:59 Chloride 98.8 mmol/L (98-107) 06/07/16 07:59 Carbon Dioxide 26 mmol/L (22-30) 06/07/16 07:59 Anion Gap 21 mmol/L 06/07/16 07:59 BUN 14 mg/dL (9-20) 06/07/16 07:59 Creatinine 0.8 mg/dL (0.8-1.5) 06/07/16 07:59 Estimated GFR > 60 ml/min 06/07/16 07:59 BUN/Creatinine Ratio 17.50 % 06/07/16 07:59 Glucose 68 mg/dL (75-100) L 06/07/16 07:59 Calcium 8.8 mg/dL (8.4-10.2) 06/07/16 07:59 Total Creatine Kinase 73 units/L (55-170) 06/04/16 09:35 CK-MB (CK-2) 1.9 ng/mL (0.0-4.0) 06/04/16 09:35 CK-MB (CK-2) Rel Index 2.6 (0-4) 06/04/16 09:35 Troponin T < 0.010 ng/mL (0.00-0.029) 06/04/16 09:35 NT-Pro-B Natriuret Pep 3366 pg/mL (0-450) H 06/03/16 20:53 TSH 1.070 mlU/mL (0.270-4.200) 06/03/16 22:11
--- NOTE | 2016-06-07 14:46 | Progress Note ---
Assessment and Plan (1) Atrial flutter with rapid ventricular response Current Visit: Yes Status: Acute Plan to address problem: - rate controlled - per cardiology otherwise - continue anticoagulation (2) Acute and chronic respiratory failure with hypoxia Current Visit: No Status: Acute Plan to address problem: - wean oxygen for O2 Sats > 94% - suspect has required oxygen for a while particularly while asleep - will need home oxygen at discharge if does not wean (ordered) - prn bronchodilators and pulmonary toilet - doubt VTE but on anticoagulation for A-fib (3) Obstructive sleep apnea Current Visit: No Status: Chronic Plan to address problem: - will need outpatient PSG - needs help with getting a CPAP machine Subjective Date of service: 06/07/16 Principal diagnosis: Acute Hypoxxemic Resp Failure; Atrial Fib with RVR Interval history: Seen and examined at bedside; 24 hour events reviewed; nursing and respiratory care staff consulted; no adverse overnight events reported to me; resting in bed ; denies acute chest pain or increased SOB Objective Vital Signs - 12hr 06/07/16 06/07/16 06/07/16 05:40 09:51 09:52 Temperature 98.8 F Pulse Rate 78 Pulse Rate [ 66 From Monitor] Pulse Rate [ Right Radial] Respiratory 20 Rate Blood Pressure 151/90 151/90 Blood Pressure 148/88 [Right Arm] O2 Sat by Pulse 97 Oximetry 06/07/16 06/07/16 10:05 11:44 Temperature 98.9 F Pulse Rate Pulse Rate [ From Monitor] Pulse Rate [ 66 Right Radial] Respiratory 20 Rate Blood Pressure Blood Pressure 157/90 [Right Arm] O2 Sat by Pulse 93 95 Oximetry Constitutional: no acute distress, alert Eyes: non-icteric ENT: oropharynx moist Neck: supple, no lymphadenopathy Effort: normal Ascultation: Bilateral: clear, diminished breath sounds Cardiovascular: irregular rhythm Gastrointestinal: normoactive bowel sounds, soft, non-tender, non-distended Integumentary: normal Extremities: no cyanosis, pink and warm, pulses normal, edema Neurologic: normal mental status, non-focal exam, pupils equal and round, motor strength normal and Psychiatric: mood appropriate, affect normal CBC and BMP: 06/09/16 04:41 06/09/16 06:06 ABG, PT/INR, D-dimer: PT/INR, D-dimer PT 17.1 Sec. (12.2-14.9) H 06/07/16 03:03 INR 1.40 (0.87-1.13) H 06/07/16 03:03 Abnormal lab findings: Abnormal Labs 06/04/16 06/04/16 06/05/16 09:35 09:35 04:40 WBC 11.7 H RBC 7.15 H 6.75 H Hgb 16.6 H 15.8 H Hct 52.1 H 49.4 H MCV 73 L 73 L MCH 23 L 23 L RDW 18.5 H 18.5 H Plt Count [place] % (Auto) 7.7 H [place] # Seg Neutrophils % 74.4 H Seg Neutrophils # 8.7 H PT INR Heparin Anti-Xa Level Potassium Creatinine Glucose 133 H 06/05/16 06/05/16 06/05/16 04:40 10:06 10:06 WBC RBC Hgb 15.8 H Hct 49.8 H MCV MCH RDW Plt Count [place] % (Auto) [place] # Seg Neutrophils % Seg Neutrophils # PT INR 1.14 H Heparin Anti-Xa Level Potassium 3.5 L Creatinine Glucose 115 H 06/06/16 06/06/16 06/06/16 01:34 04:24 08:33 WBC 12.5 H RBC 6.71 H Hgb 15.8 H Hct 49.7 H MCV 74 L MCH 24 L RDW 19.0 H Plt Count [place] % (Auto) [place] # 0.9 H Seg Neutrophils % Seg Neutrophils # 8.2 H PT INR 1.17 H Heparin Anti-Xa Level 0.27 L Potassium Creatinine 0.7 L Glucose 06/06/16 06/06/16 06/07/16 10:15 19:08 03:03 WBC RBC Hgb Hct MCV MCH RDW Plt Count [place] % (Auto) [place] # Seg Neutrophils % Seg Neutrophils # PT 17.1 H INR 1.40 H Heparin Anti-Xa Level 0.22 L 0.28 L 0.27 L Potassium Creatinine Glucose 06/07/16 06/07/16 04:51 07:59 WBC RBC 6.72 H Hgb 15.6 H Hct 49.3 H MCV 73 L MCH 23 L RDW 19.2 H Plt Count 136 L [place] % (Auto) 8.4 H [place] # Seg Neutrophils % Seg Neutrophils # PT INR Heparin Anti-Xa Level Potassium 3.5 L Creatinine Glucose 68 L
[2016-06-07 16:26] LABS: ISTAT Base Excess 5; ISTAT DEVICE 0; ISTAT HCO3 29.7; ISTAT PCO2 49.5 (35-45); ISTAT PH 7.386 (7.35-7.45); ISTAT PO2 65 (80-105); ISTAT SO2 92; ISTAT TCO2 31
[2016-06-07] MEDS: COUMADIN PO SCH (18:00)
[2016-06-08] MEDS: HEPARIN/ 0.45% NACL-25,000 UNIT/500 ML 25,000 UNITS/500 ML BAG IV SCH ×2 (00:12→12:38)
[2016-06-08 06:17] LABS: Basophils % (Auto) 0.4 % (0.0-1.8); Eosinophils % (Auto) 2.3 % (0.0-4.3); Hematocrit 48.7 % (35.5-45.6); Hemoglobin 15.4 gm/dl (11.8-15.2); Mean Corpuscular HGB Conc 32 % (32-34); Mean Corpuscular Volume 74 fl (84-94); Platelet Count 128 K/mm3 (140-440); Red Blood Count 6.61 M/mm3 (3.65-5.03); Red Cell Distribution Width 19.4 % (13.2-15.2); White Blood Count 9.2 K/mm3 (4.5-11.0)
[2016-06-08 06:21] LABS: Mean Corpuscular Hemoglobin 23 pg (28-32)
[2016-06-08 06:37] LABS: INR 1.68 (0.87-1.13)
[2016-06-08 07:15] LABS: Anion Gap 19 mmol/L; BUN/Creatinine Ratio 17.14; Blood Urea Nitrogen 12 mg/dL (9-20); Calcium 8.8 mg/dL (8.4-10.2); Carbon Dioxide 28 mmol/L (22-30); Chloride 97.1 mmol/L (98-107); Glucose 81 mg/dL (75-100); Sodium 140 mmol/L (137-145)
[2016-06-08] MEDS: PEPCID PO SCH (11:08)
[2016-06-08] MEDS: NORVASC PO SCH (11:08)
[2016-06-08] MEDS: HABITROL TD SCH (11:08)
[2016-06-08] MEDS: ZESTRIL PO SCH (11:09)
[2016-06-08] MEDS: LOPRESSOR PO SCH ×2 (11:10→21:44)
--- NOTE | 2016-06-08 11:23 | Progress Note ---
Assessment and Plan Assessment and plan: Atrial flutter. Continue Lopressor, heparin drip/Coumadin. Goal INR 2-3 HTN. Continue lisinopril and hydralazine when necessary. MOE/OHS. Pulmonary following. Obesity. Patient will be counseled regarding weight loss. History Interval history: 41-year-old man with a history of hypertension, A. fib /flutter, CHF, polycythemia vera, obstructive sleep apnea comes emergency room with complaints of palpitation that started yesterday. Patient was admitted with atrial flutter with rapid ventricular response. Patient initially treated with Cardizem drip which has been weaned off. Patient currently with sinus rhythm Hospitalist Physical - Constitutional Vitals: Temp Pulse Resp BP Pulse Ox 98.2 F 72 20 165/97 97 06/08/16 11:18 06/08/16 11:18 06/08/16 11:18 06/08/16 11:18 06/08/16 11:18 General appearance: Present: no acute distress, obese - EENT Eyes: Present: PERRL, EOM intact ENT: hearing intact, clear oral mucosa, dentition normal - Neck Neck: Present: supple, normal ROM - Respiratory Respiratory effort: normal Respiratory: bilateral: CTA - Cardiovascular Rhythm: regular Heart Sounds: Present: S1 & S2. Absent: gallop, rub - Extremities Extremities: no ischemia, No edema, Full ROM - Abdominal General gastrointestinal: soft, non-tender, non-distended, normal bowel sounds - Integumentary Integumentary: Present: clear, warm, dry - Neurologic Neurologic: CNII-XII intact, moves all extremities Results - Labs CBC & Chem 7: 06/08/16 04:30 06/08/16 06:33 Labs: Laboratory Last Values WBC 9.2 K/mm3 (4.5-11.0) 06/08/16 04:30 RBC 6.61 M/mm3 (3.65-5.03) H 06/08/16 04:30 Hgb 15.4 gm/dl (11.8-15.2) H 06/08/16 04:30 Hct 48.7 % (35.5-45.6) H 06/08/16 04:30 MCV 74 fl (84-94) L 06/08/16 04:30 MCH 23 pg (28-32) L 06/08/16 04:30 MCHC 32 % (32-34) 06/08/16 04:30 RDW 19.4 % (13.2-15.2) H 06/08/16 04:30 Plt Count 128 K/mm3 (140-440) L 06/08/16 04:30 Lymph % (Auto) 22.4 % (13.4-35.0) 06/08/16 04:30 [place] % (Auto) 8.2 % (0.0-7.3) H 06/08/16 04:30 Eos % (Auto) 2.3 % (0.0-4.3) 06/08/16 04:30 Baso % (Auto) 0.4 % (0.0-1.8) 06/08/16 04:30 Lymph # 2.1 K/mm3 (1.2-5.4) 06/08/16 04:30 [place] # 0.8 K/mm3 (0.0-0.8) 06/08/16 04:30 Eos # 0.2 K/mm3 (0.0-0.4) 06/08/16 04:30 Baso # 0.0 K/mm3 (0.0-0.1) 06/08/16 04:30 Seg Neutrophils % 66.7 % (40.0-70.0) 06/08/16 04:30 Seg Neutrophils # 6.2 K/mm3 (1.8-7.7) 06/08/16 04:30 PT 19.8 Sec. (12.2-14.9) H 06/08/16 04:30 INR 1.68 (0.87-1.13) H 06/08/16 04:30 APTT 33.9 Sec. (24.2-36.6) 06/05/16 10:06 Heparin Anti-Xa Level 0.32 U.I./ml (0.3-0.7) 06/08/16 04:30 POC ABG pH 7.386 (7.35-7.45) 06/07/16 16:13 POC ABG pCO2 49.5 (35-45) H 06/07/16 16:13 POC ABG pO2 65 (80-105) L 06/07/16 16:13 POC ABG HCO3 29.7 06/07/16 16:13 POC ABG Total CO2 31 06/07/16 16:13 POC ABG O2 Sat 92 06/07/16 16:13 POC ABG Base Excess 5 06/07/16 16:13 FiO2 21 % 06/07/16 16:13 Sodium 140 mmol/L (137-145) 06/08/16 06:33 Potassium 4.0 mmol/L (3.6-5.0) 06/08/16 06:33 Chloride 97.1 mmol/L (98-107) L 06/08/16 06:33 Carbon Dioxide 28 mmol/L (22-30) 06/08/16 06:33 Anion Gap 19 mmol/L 06/08/16 06:33 BUN 12 mg/dL (9-20) 06/08/16 06:33 Creatinine 0.7 mg/dL (0.8-1.5) L 06/08/16 06:33 Estimated GFR > 60 ml/min 06/08/16 06:33 BUN/Creatinine Ratio 17.14 % 06/08/16 06:33 Glucose 81 mg/dL (75-100) 06/08/16 06:33 POC Glucose 74 (70-105) 06/08/16 07:27 Calcium 8.8 mg/dL (8.4-10.2) 06/08/16 06:33 Total Creatine Kinase 73 units/L (55-170) 06/04/16 09:35 CK-MB (CK-2) 1.9 ng/mL (0.0-4.0) 06/04/16 09:35 CK-MB (CK-2) Rel Index 2.6 (0-4) 06/04/16 09:35 Troponin T < 0.010 ng/mL (0.00-0.029) 06/04/16 09:35 NT-Pro-B Natriuret Pep 3366 pg/mL (0-450) H 06/03/16 20:53 TSH 1.070 mlU/mL (0.270-4.200) 06/03/16 22:11
[2016-06-08] MEDS: COUMADIN PO SCH (17:06)
--- NOTE | 2016-06-08 18:47 | Progress Note ---
Assessment and Plan Patient alert, awake and resting on nasal canula 2 litres and O2 satuaration 97 % on 1 litre O2.Patient using BIPAP at night and Prn for shortness of breath during day time. - Patient Problems (1) Acute and chronic respiratory failure with hypoxia Current Visit: No Status: Acute Plan to address problem: O2 supplementation. Bipap during night time and PRN during day time. Brovanna/Budesonide aerosol treatments q 12 hours. Patient is on I/V Heparin. (2) Atrial flutter with rapid ventricular response Current Visit: Yes Status: Acute Plan to address problem: Management as per cardiology. Patient is on I/V Heparin and PO coumadin. (3) Congestive heart failure Current Visit: No Status: Acute Qualifiers: Congestive heart failure type: combined Congestive heart failure chronicity : acute Qualified Code(s): I50.41 - Acute combined systolic (congestive) and diastolic (congestive) heart failure Plan to address problem: Management as per Cardiology. (4) Morbid obesity with BMI of 50.0-59.9, adult Current Visit: No Status: Chronic Plan to address problem: Consult nutrition for weight reduction diet. (5) Obstructive sleep apnea Current Visit: No Status: Chronic Plan to address problem: Patient is on BIPAP (6) Uncontrolled hypertension Current Visit: No Status: Chronic Plan to address problem: Management as per primary care. Subjective Date of service: 06/08/16 Principal diagnosis: Acute Hypoxxemic Resp Failure; Atrial Fib with RVR Interval history: Patient alert, awake and resting on nasal canula 2 litres and O2 satuaration 97 % on 1 litre O2.Patient using BIPAP at night and Prn for shortness of breath during day time. Objective Vital Signs - 12hr 06/08/16 06/08/16 06/08/16 07:38 08:34 11:08 Temperature 97.9 F Pulse Rate 86 Pulse Rate [ From Monitor] Pulse Rate [ Left Radial] Pulse Rate [ 71 Right Radial] Respiratory 20 Rate Blood Pressure 148/95 Blood Pressure [Left Radial Artery] Blood Pressure 146/91 [Right Arm] O2 Sat by Pulse 98 98 Oximetry 06/08/16 06/08/16 06/08/16 11:09 11:10 11:18 Temperature 98.2 F Pulse Rate 96 H 96 H Pulse Rate [ From Monitor] Pulse Rate [ 72 Left Radial] Pulse Rate [ Right Radial] Respiratory 20 Rate Blood Pressure 148/96 148/89 Blood Pressure 165/97 [Left Radial Artery] Blood Pressure [Right Arm] O2 Sat by Pulse 97 Oximetry 06/08/16 06/08/16 15:33 16:12 Temperature 98.2 F Pulse Rate Pulse Rate [ 72 From Monitor] Pulse Rate [ Left Radial] Pulse Rate [ 67 Right Radial] Respiratory 20 Rate Blood Pressure Blood Pressure [Left Radial Artery] Blood Pressure 164/97 [Right Arm] O2 Sat by Pulse 97 Oximetry Constitutional: no acute distress, alert Eyes: non-icteric ENT: oropharynx moist Neck: supple, no lymphadenopathy Effort: normal Ascultation: Bilateral: diminished breath sounds Cardiovascular: irregular rhythm Gastrointestinal: normoactive bowel sounds, soft, non-tender, non-distended Integumentary: normal Extremities: no cyanosis, pink and warm, pulses normal, edema Neurologic: normal mental status, non-focal exam, pupils equal and round, motor strength normal and Psychiatric: mood appropriate, affect normal CBC and BMP: 06/08/16 04:30 06/08/16 06:33 ABG, PT/INR, D-dimer: ABG POC ABG pH 7.386 (7.35-7.45) 06/07/16 16:13 POC ABG pCO2 49.5 (35-45) H 06/07/16 16:13 POC ABG pO2 65 (80-105) L 06/07/16 16:13 POC ABG HCO3 29.7 06/07/16 16:13 POC ABG Total CO2 31 06/07/16 16:13 POC ABG O2 Sat 92 06/07/16 16:13 PT/INR, D-dimer PT 19.8 Sec. (12.2-14.9) H 06/08/16 04:30 INR 1.68 (0.87-1.13) H 06/08/16 04:30 Abnormal lab findings: Abnormal Labs 06/04/16 06/04/16 06/05/16 09:35 09:35 04:40 WBC 11.7 H RBC 7.15 H 6.75 H Hgb 16.6 H 15.8 H Hct 52.1 H 49.4 H MCV 73 L 73 L MCH 23 L 23 L RDW 18.5 H 18.5 H Plt Count [place] % (Auto) 7.7 H [place] # Seg Neutrophils % 74.4 H Seg Neutrophils # 8.7 H PT INR Heparin Anti-Xa Level POC ABG pCO2 POC ABG pO2 Potassium Chloride Creatinine Glucose 133 H 06/05/16 06/05/16 06/05/16 04:40 10:06 10:06 WBC RBC Hgb 15.8 H Hct 49.8 H MCV MCH RDW Plt Count [place] % (Auto) [place] # Seg Neutrophils % Seg Neutrophils # PT INR 1.14 H Heparin Anti-Xa Level POC ABG pCO2 POC ABG pO2 Potassium 3.5 L Chloride Creatinine Glucose 115 H 06/06/16 06/06/16 06/06/16 01:34 04:24 08:33 WBC 12.5 H RBC 6.71 H Hgb 15.8 H Hct 49.7 H MCV 74 L MCH 24 L RDW 19.0 H Plt Count [place] % (Auto) [place] # 0.9 H Seg Neutrophils % Seg Neutrophils # 8.2 H PT INR 1.17 H Heparin Anti-Xa Level 0.27 L POC ABG pCO2 POC ABG pO2 Potassium Chloride Creatinine 0.7 L Glucose 06/06/16 06/06/16 06/07/16 10:15 19:08 03:03 WBC RBC Hgb Hct MCV MCH RDW Plt Count [place] % (Auto) [place] # Seg Neutrophils % Seg Neutrophils # PT 17.1 H INR 1.40 H Heparin Anti-Xa Level 0.22 L 0.28 L 0.27 L POC ABG pCO2 POC ABG pO2 Potassium Chloride Creatinine Glucose 06/07/16 06/07/16 06/07/16 04:51 07:59 16:13 WBC RBC 6.72 H Hgb 15.6 H Hct 49.3 H MCV 73 L MCH 23 L RDW 19.2 H Plt Count 136 L [place] % (Auto) 8.4 H [place] # Seg Neutrophils % Seg Neutrophils # PT INR Heparin Anti-Xa Level POC ABG pCO2 49.5 H POC ABG pO2 65 L Potassium 3.5 L Chloride Creatinine Glucose 68 L 06/08/16 06/08/16 06/08/16 04:30 04:30 06:33 WBC RBC 6.61 H Hgb 15.4 H Hct 48.7 H MCV 74 L MCH 23 L RDW 19.4 H Plt Count 128 L [place] % (Auto) 8.2 H [place] # Seg Neutrophils % Seg Neutrophils # PT 19.8 H INR 1.68 H Heparin Anti-Xa Level POC ABG pCO2 POC ABG pO2 Potassium Chloride 97.1 L Creatinine 0.7 L Glucose Chest x-ray: report reviewed, image reviewed (Cardiomegaly and pulmonary venous hypertension.)
[2016-06-09] MEDS: HEPARIN/ 0.45% NACL-25,000 UNIT/500 ML 25,000 UNITS/500 ML BAG IV SCH (02:27)
[2016-06-09 05:53] LABS: Basophils % (Auto) 0.3 % (0.0-1.8); Eosinophils % (Auto) 2.7 % (0.0-4.3); Mean Corpuscular HGB Conc 31 % (32-34); Mean Corpuscular Volume 75 fl (84-94); Platelet Count 112 K/mm3 (140-440); Red Blood Count 6.28 M/mm3 (3.65-5.03); Red Cell Distribution Width 19.3 % (13.2-15.2); White Blood Count 8.2 K/mm3 (4.5-11.0)
[2016-06-09 05:57] LABS: INR 2.33 (0.87-1.13)
[2016-06-09 06:10] LABS: Hematocrit 46.9 % (35.5-45.6); Hemoglobin 14.5 gm/dl (11.8-15.2); Mean Corpuscular Hemoglobin 23 pg (28-32)
[2016-06-09 08:19] LABS: Anion Gap 17 mmol/L; BUN/Creatinine Ratio 14.28; Blood Urea Nitrogen 10 mg/dL (9-20); Calcium 8.9 mg/dL (8.4-10.2); Carbon Dioxide 30 mmol/L (22-30); Chloride 100.9 mmol/L (98-107); Glucose 76 mg/dL (75-100); Potassium 4.1 mmol/L (3.6-5.0); Sodium 144 mmol/L (137-145)
--- NOTE | 2016-06-09 08:31 | Discharge Summary ---
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 He is noncompliant with medical management and medical follow- up. Pt. presented to the hospital with symptomatic atrial flutter. Atrial flutter with rapid ventricular response, which during the hospital stay reverted to a stable sinus rhythm on Cardizem therapy. Patient of feels better in sinus rhythm. Prior cardiac workup includeed an echocardiogram in March 2015, left ventricular ejection fraction was 50-55%. Patient was found to have a chads score of 2 and therefore anticoagulation was recommended by cardiology. Patient received Lovenox bridging and started on Coumadin therapy. Patient's target INR was 2-3. INR discharge is 2.3. Cardiology recommended discharge with metoprolol, amlodipine warfarin and lisinopril. These are $4 prescriptions in hopes patient will be compliant with medications. Dedicated discharge time 31 minutes. Disposition: DISCHARGED TO HOME OR SELFCARE Time spent for discharge: 31 - Discharge Diagnoses (1) Atrial flutter with rapid ventricular response Status: Acute (2) Uncontrolled hypertension Status: Chronic Core Measure Documentation - Palliative Care Palliative Care/ Comfort Measures: Not Applicable - Core Measures Any of the following diagnoses?: none Exam - Constitutional Vitals: Temp Pulse Resp BP Pulse Ox 97.2 F L 60 20 137/88 99 06/09/16 04:44 06/09/16 06:00 06/09/16 04:44 06/09/16 04:44 06/09/16 04:44 General appearance: Present: no acute distress, well-nourished - EENT Eyes: Present: PERRL ENT: hearing intact, clear oral mucosa - Neck Neck: Present: supple, normal ROM - Respiratory Respiratory effort: normal Respiratory: bilateral: CTA - Cardiovascular Heart Sounds: Present: S1 & S2. Absent: rub, click - Extremities Extremities: pulses symmetrical, No edema Peripheral Pulses: within normal limits - Abdominal General gastrointestinal: Present: soft, non-tender, non-distended, normal bowel sounds Male genitourinary: Present: normal - Integumentary Integumentary: Present: clear, warm, dry - Musculoskeletal Musculoskeletal: gait normal, strength equal bilaterally - Psychiatric Psychiatric: appropriate mood/affect, intact judgment & insight - Neurologic Neurologic: CNII-XII intact, moves all extremities Plan Activity: no restrictions Weight Bearing Status: Full Weight Bearing Diet: low fat, low cholesterol, low salt Follow up with: [facility] [Outside] - 06/12/16 9:30 am PRIMARY CAREMD [Primary Care Provider] - 3-5 Days VIKTORIA MORATAYA MD [Staff Physician] - 7 Days Forms: Warfarin Discharge Instruction Prescriptions: Famotidine [Pepcid] 20 mg PO QDAY #30 tablet Lisinopril [Zestril TAB] 40 mg PO QDAY #30 tablet Metoprolol [Lopressor TAB] 100 mg PO BID #60 tablet Warfarin [Coumadin] 7.5 mg PO QDAY #30 tablet
[2016-06-09 09:10] VITALS: BP 159/84
[2016-06-09] MEDS: HABITROL TD SCH (10:29)
[2016-06-09] MEDS: PEPCID PO SCH (10:30)
[2016-06-09] MEDS: NORVASC PO SCH (10:31)
[2016-06-09] MEDS: ZESTRIL PO SCH (10:31)
[2016-06-09] MEDS: LOPRESSOR PO SCH (10:32)
[2016-06-09] MEDS ORDERED: COUMADIN PO SCH (17:00)
== END 2016-06-09 14:15 | disposition home or self-care (01) | DRG 308 ==
LOC: ED 18:49 → CC1 06-04 00:42 → 4A 06-04 17:04
PROVIDERS: ADMIT Internal Medicine; ATTEND Hospitalist
PROC: 5A09357 Assistance with Respiratory Ventilation, Less than 24 Consecutive Hours, Continuous Positive Airway Pressure (ICD-10-PCS; principal; 2016-06-07)
PROC: 4A033R1 Measurement of Arterial Saturation, Peripheral, Percutaneous Approach (ICD-10-PCS; 2016-06-07)
DX: I48.92 Unspecified atrial flutter (principal); J96.21 Acute and chronic respiratory failure with hypoxia; I50.41 Acute combined systolic (congestive) and diastolic (congestive) heart failure; Z68.42 Body mass index [BMI] 45.0-49.9, adult; I48.91 Unspecified atrial fibrillation; I11.0 Hypertensive heart disease with heart failure; I50.9 Heart failure, unspecified; F17.210 Nicotine dependence, cigarettes, uncomplicated; J44.9 Chronic obstructive pulmonary disease, unspecified; G47.33 Obstructive sleep apnea (adult) (pediatric); E66.01 Morbid (severe) obesity due to excess calories; D45 Polycythemia vera; Z91.14 Patient's other noncompliance with medication regimen; Z82.49 Family history of ischemic heart disease and other diseases of the circulatory system
CPT/HCPCS: 36415; 36600; 71010; 80048; 82550; 82553; 82803; 82962; 83880; 84443; 84484; 85014; 85018; 85025; 85049; 85520; 85610; 85730; 93005; 93010; 94660; 94760; 96361; 96374; 96375; 99406; J0360; J1644; J1650; J7040

== ENCOUNTER 2017-02-25 23:00 | Inpatient (IN) | payer OTHER ==
[2017-02-25] MEDS ORDERED: LASIX IV ONE (23:38)
[2017-02-25] MEDS ORDERED: DUONEB *Not for PRN Use IH ONE (23:38)
--- NOTE | 2017-02-25 23:45 | Emergency Department Report ---
ED Shortness of Breath HPI - General Chief Complaint: Dyspnea/Respdistress Stated Complaint: BILATERAL FEET EDEMA Time Seen by Provider: 02/25/17 23:37 Source: patient Mode of arrival: Ambulatory Limitations: No Limitations - History of Present Illness Initial Comments: 41 yo male who comes in today due to shortness of breath. He states that it has been present times greater than one week. Admits to a history of congestive heart failure and obstructive sleep apnea. He doesn't wear cpap at home for his obstructive sleep apnea due to the cost. He denies chest pain, nausea, vomiting, or radiation to his neck, jaw, or arm. MD Complaint: shortness of breath -: week(s) (one ) Severity: moderate Consistency: constant Improves With: nothing Worsens With: exertion, movement Known History Of: COPD (hx of tobacco abuse ), congestive heart failure, other ( obstructive sleep apnea ) Context: other (unknown ) Treatments Prior to Arrival: other (lasix ) - Related Data Home Oxygen Therapy: No (patient is supposed to wear cpap ) Previous Rx's Medication Instructions Recorded Last Taken Type Furosemide [Lasix TAB] 40 mg PO 0600,1800 #60 tablet 04/08/15 05/14/15 Rx Potassium Chloride [K-Dur] 20 meq PO QDAY #30 tablet 04/08/15 05/12/15 Rx Ferrous Sulfate [Feosol 325 MG tab] 325 mg PO BID #60 tablet 05/15/15 Unknown Rx Famotidine [Pepcid] 20 mg PO QDAY #30 tablet 06/09/16 Unknown Rx Lisinopril [Zestril TAB] 40 mg PO QDAY #30 tablet 06/09/16 Unknown Rx Metoprolol [Lopressor TAB] 100 mg PO BID #60 tablet 06/09/16 Unknown Rx Warfarin [Coumadin] 7.5 mg PO QDAY #30 tablet 06/09/16 Unknown Rx amLODIPine [Norvasc] 10 mg PO DAILY #30 tab 06/09/16 Unknown Rx amLODIPine [Norvasc] 10 mg PO QDAY tablet 06/09/16 Unknown Rx Allergies Allergy/AdvReac Type Severity Reaction Status Date / Time No Known Allergies Allergy Verified 04/03/15 08:05 ED Review of Systems ROS: Stated complaint: BILATERAL FEET EDEMA Other details as noted in HPI Constitutional: denies: chills, fever Eyes: denies: eye pain, eye discharge, vision change ENT: denies: ear pain, throat pain Respiratory: see HPI, shortness of breath, SOB with exertion, SOB at rest Cardiovascular: denies: chest pain, palpitations Endocrine: no symptoms reported Gastrointestinal: denies: abdominal pain, nausea, diarrhea Genitourinary: denies: urgency, dysuria Musculoskeletal: denies: back pain, joint swelling, arthralgia Skin: denies: rash, lesions Neurological: denies: headache, weakness, paresthesias Psychiatric: denies: anxiety, depression Hematological/Lymphatic: denies: easy bleeding, easy bruising ED Past Medical Hx - Past Medical History Previous Medical History?: Yes Hx Hypertension: Yes Hx Congestive Heart Failure: Yes Hx Diabetes: No Additional medical history: Afib. MOE - Surgical History Past Surgical History?: No - Social History Smoking Status: Former Smoker - Medications Home Medications: Home Medications Medication Instructions Recorded Confirmed Last Taken Type Furosemide [Lasix TAB] 40 mg PO 0600,1800 #60 tablet 04/08/15 06/03/16 05/14/15 Rx Potassium Chloride [K-Dur] 20 meq PO QDAY #30 tablet 04/08/15 06/03/16 05/12/15 Rx Ferrous Sulfate [Feosol 325 MG tab] 325 mg PO BID #60 tablet 05/15/15 06/03/16 Unknown Rx Famotidine [Pepcid] 20 mg PO QDAY #30 tablet 06/09/16 Unknown Rx Lisinopril [Zestril TAB] 40 mg PO QDAY #30 tablet 06/09/16 Unknown Rx Metoprolol [Lopressor TAB] 100 mg PO BID #60 tablet 06/09/16 Unknown Rx Warfarin [Coumadin] 7.5 mg PO QDAY #30 tablet 06/09/16 Unknown Rx amLODIPine [Norvasc] 10 mg PO DAILY #30 tab 06/09/16 Unknown Rx amLODIPine [Norvasc] 10 mg PO QDAY tablet 06/09/16 Unknown Rx ED Physical Exam - General Limitations: No Limitations General appearance: alert, in no apparent distress - Head Head exam: Present: atraumatic, normocephalic - Eye Eye exam: Present: normal appearance - ENT ENT exam: Present: mucous membranes moist - Neck Neck exam: Present: normal inspection - Respiratory Respiratory exam: Present: decreased breath sounds (bilaterally ) - Cardiovascular Cardiovascular Exam: Present: tachycardia - Extremities Exam Extremities exam: Present: other (bilateral lower extremity edema/pedal edema ) - Back Exam Back exam: Present: normal inspection - Neurological Exam Neurological exam: Present: alert, oriented X3 - Psychiatric Psychiatric exam: Present: normal affect, normal mood - Skin Skin exam: Present: other (venous stasis/insufficiency-bilateral lower extremities with edema ) ED Course Vital Signs 02/25/17 02/25/17 02/26/17 23:13 23:35 00:48 Temperature 100.3 F H 100.3 F H Pulse Rate 115 H 104 H Pulse Rate [ 84 Posterior Bilateral Throughout] Respiratory 18 16 Rate Respiratory 20 Rate [Posterior Bilateral Throughout] Blood Pressure 173/111 Blood Pressure 177/111 [Left] O2 Sat by Pulse 78 L 68 L Oximetry ED Medical Decision Making - Lab Data Result diagrams: 02/25/17 23:50 02/25/17 23:50 - EKG Data -: EKG Interpreted by Vt EKG shows normal: sinus rhythm Rate: normal - EKG Data When compared to previous EKG there are: previous EKG unavailable Interpretation: nonspecific ST-T wave eddy - Radiology Data Radiology results: report reviewed (mild cardiomegaly with pulmonary hypertension ) - Medical Decision Making Respiratory distress Hypoxia Medical non-compliance Congestive heart failure Obstructive sleep apnea - Differential Diagnosis respiratory distress, congestive heart failure, obs. sleep apnea, hypoxia Critical care attestation.: If time is entered above; I have spent that time in minutes in the direct care of this critically ill patient, excluding procedure time. ED Disposition Clinical Impression: Obstructive sleep apnea, Congestive heart failure, Morbid obesity with BMI of 50.0-59.9, adult, Shortness of breath, Hypoxia, Respiratory distress Disposition: OP ADMIT IP TO THIS HOSP Is pt being admited?: Yes Does the pt Need Aspirin: No Condition: Stable Referrals: YIFAN BRODY MD [Primary Care Provider] - 3-5 Days Time of Disposition: 01:51
--- NOTE | 2017-02-26 00:29 | XRay Report ---
FINAL REPORT PROCEDURE: Portable upright AP chest x-ray TECHNIQUE: Chest radiograph portable upright AP sterior view. CPT 89878 HISTORY: Shortness of breath COMPARISON: No prior studies are available for comparison. FINDINGS: Heart: Significantly magnified due to projection probably mildly enlarged.. Mediastinum/Vessels: Upper lobe vasculature mildly distended although fairly sharply defined. No pulmonary edema or pleural effusions are seen. Lungs/Pleural space: No infiltrates masses effusions or pneumothorax are identified.. Bony thorax: No acute osseous abnormality. Life support devices: None. IMPRESSION: Mild cardiomegaly with mild pulmonary venous hypertension changes. No other abnormalities are seen..
[2017-02-26 00:38] LABS: Basophils % (Auto) 0.5 % (0.0-1.8); Eosinophils % (Auto) 0.5 % (0.0-4.3); Lymphocytes # (Auto) 1.5 K/mm3 (1.2-5.4); Lymphocytes % (Auto) 16.8 % (13.4-35.0); Mean Corpuscular HGB Conc 30 % (32-34); Mean Corpuscular Volume 75 fl (84-94); Monocytes % (Auto) 11.4 % (0.0-7.3); Platelet Count 130 K/mm3 (140-440); Red Blood Count 6.55 M/mm3 (3.65-5.03); Red Cell Distribution Width 18.9 % (13.2-15.2)
[2017-02-26 00:44] LABS: Hemoglobin 14.8 gm/dl (11.8-15.2)
[2017-02-26 00:45] LABS: Mean Corpuscular Hemoglobin 23 pg (28-32)
[2017-02-26 00:52] LABS: Creatine Kinase MB 3.2 ng/mL (0.0-4.0)
[2017-02-26 00:53] LABS: INR 1.05 (0.87-1.13); Partial Thromboplastin Time 31.1 Sec. (24.2-36.6)
[2017-02-26 00:56] LABS: Alanine Aminotransferase 15 units/L (7-56); Albumin 4.1 g/dL (3.9-5); BUN/Creatinine Ratio 20; Blood Urea Nitrogen 14 mg/dL (9-20); Calcium 8.4 mg/dL (8.4-10.2); Hemolysis Index 48
[2017-02-26] MEDS ORDERED: MILK OF MAGNESIA PO PRN (03:04)
[2017-02-26] MEDS ORDERED: DULCOLAX PR PRN (03:04)
[2017-02-26] MEDS ORDERED: TYLENOL PO PRN (03:04)
[2017-02-26] MEDS ORDERED: ZOFRAN IV PRN (03:04)
--- NOTE | 2017-02-26 05:31 | History and Physical Report ---
History of Present Illness Date of examination: 02/26/17 Date of admission: 02/26/17 03:04 History of present illness: his is a 39-year-old man with a history of CHF, polycythemia vera, obstructive sleep apnea, A. fib, hypertension complaining of shortness of breath and swelling of his feet for 1 week. Also complaining of chest pain located in the epigastric area which he describes the tightness, intermittent in nature, unable to say outlined above, no radiation, intensity 5/10, cannot identify exacerbating or relieving factors. Review Of Systems: Constitutional: no weight loss Ears, eyes, nose, mouth and throat: no nasal congestion, no nasal discharge, no sinus pressure, blurry vision, diplopia Neck: No neck pain or rigidity. Cardiovascular: No palpitations Respiratory: No cough Gastrointestinal: No abdominal pain, hematochezia Genitourinary : no dysuria, frequency , hematuria Musculoskeletal: no muscle ache Integumentary: no rash, no pruritis Neurological: no parathesias, focal weakness Endocrine: no cold or heat intolerance, no polyuria or polydipsia Hematologic/Lymphatic: no easy bruising, no easy bleeding, no gland swelling Allergic/Immunologic: no urticaria, no angioedema. PAST SURGICAL HISTORY: None SOCIAL HISTORY: Quit tobacco use , no alcohol or drugs FAMILY HISTORY: Hypertension Medications and Allergies Allergies Allergy/AdvReac Type Severity Reaction Status Date / Time No Known Allergies Allergy Verified 04/03/15 08:05 Home Medications Medication Instructions Recorded Confirmed Last Taken Type Furosemide [Lasix TAB] 40 mg PO 0600,1800 #60 tablet 04/08/15 06/03/16 02/26/17 Rx Famotidine [Pepcid] 20 mg PO QDAY #30 tablet 06/09/16 02/26/17 Rx Lisinopril [Zestril TAB] 40 mg PO QDAY #30 tablet 06/09/16 02/26/17 Rx Metoprolol [Lopressor TAB] 100 mg PO BID #60 tablet 06/09/16 02/26/17 Rx amLODIPine [Norvasc] 10 mg PO DAILY #30 tab 06/09/16 02/26/17 Rx amLODIPine [Norvasc] 10 mg PO QDAY tablet 06/09/16 02/26/17 Rx Active Meds: Active Medications Acetaminophen (Tylenol) 650 mg PO Q4H PRN PRN Reason: Pain MILD(1-3)/Fever >100.5/ESPOSITO Bisacodyl (Dulcolax) 10 mg [place] QDAY PRN PRN Reason: Constipation unrelieved by MOM Famotidine (Pepcid) 20 mg PO QDAY [place] Ferrous Sulfate (Feosol) 325 mg PO BID [place] Furosemide (Lasix) 40 mg IV BID@0600,1800 [place] Lisinopril (Zestril) 40 mg PO QDAY [place] Magnesium Hydroxide (Milk Of Magnesia) 30 ml PO Q4H PRN PRN Reason: Constipation Metoprolol Tartrate (Lopressor) 100 mg PO BID [place] Ondansetron HCl (Zofran) 4 mg IV Q8H PRN PRN Reason: N/V unrelieved by Reglan Warfarin Sodium (Coumadin) 7.5 mg PO QDAY@1700 [place] PRN Reason: Protocol Exam - Physical Exam Narrative exam: Gen. appearance: Patient lying in bed in no acute distress HEENT: Normocephalic/atraumatic, pupils equal round reactive to light, extra occular movement intact, no scleral icterus, no JVD or thyromegaly or nodule, neck is supple, mucous membrane moist, no erythema or exudate Heart: S1-S2, regular rate and rhythm Lungs: Crackles bilateral breathing comfortable Abdomen: Positive bowel sounds, nontender, nondistended, no organomegaly Extremities + edema, no cyanosis, clubbing Neuro:: Oriented 3 , cranial nerves II-12 intact, speech, motor intact Skin: No rash, nodules, warm dry - Constitutional Vitals: Temp Pulse Resp BP Pulse Ox 99.2 F 91 H 24 175/118 95 02/26/17 05:21 02/26/17 05:21 02/26/17 05:21 02/26/17 05:21 02/26/17 05:21 Results - Labs CBC & Chem 7: 02/25/17 23:50 02/25/17 23:50 Labs: Abnormal lab results 02/25/17 02/25/17 Range/Units 23:50 23:50 RBC 6.55 H (3.65-5.03) M/mm3 Hct 48.0 H (35.5-45.6) % MCV 75 L (84-94) fl MCH 23 L (28-32) pg MCHC 30 L (32-34) % RDW 18.9 H (13.2-15.2) % Plt Count 130 L (140-440) K/mm3 [place] % (Auto) 11.4 H (0.0-7.3) % [place] # 1.0 H (0.0-0.8) K/mm3 Seg Neutrophils % 70.8 H (40.0-70.0) % Chloride 97.8 L (98-107) mmol/L Carbon Dioxide 33 H (22-30) mmol/L Creatinine 0.7 L (0.8-1.5) mg/dL - Imaging and Cardiology EKG: image reviewed Chest x-ray: image reviewed Assessment and Plan Assessment CHF, acute on chronic probably diastolic Chest pain SIRS A. fib Thrombocytopenia MOE Plan Admit medicine Give IV Lasix, start beta diane, HAYDEN inhibitor, aspirin check cardiac enzymes and echo, consult cardiology Monitor I's and O's, daily weights Start empiric antibiotic, obtain blood culture, urine DVT prophylaxis
[2017-02-26] MEDS: LASIX IV SCH ×2 (05:57→19:27)
[2017-02-26 07:39] LABS: Creatine Kinase MB 3.8 ng/mL (0.0-4.0)
[2017-02-26 09:52] LABS: Creatine Kinase MB 3.8 ng/mL (0.0-4.0)
[2017-02-26] MEDS: FEOSOL PO SCH ×2 (10:12→21:55)
[2017-02-26] MEDS: LOPRESSOR PO SCH ×2 (10:13→21:55)
[2017-02-26] MEDS: PEPCID PO SCH (10:13)
[2017-02-26] MEDS: ZESTRIL PO SCH (10:14)
--- NOTE | 2017-02-26 11:24 | Consultation ---
History of Present Illness Consult date: 02/26/17 Consult reason: congestive heart failure History of present illness: This is a 41 year old man with multiple medical problems including morbid obesity, sleep apnea and COPD. Patient also has a history of paroxysmal atrial flutter and is on beta blockers for suppression. Patient was recently taken off oral anticoagulation by his primary senior software qa analyst. Prior echocardiogram, done 2015, reports a left ventricular ejection fraction 50-55%. Patient presents to this hospital with complaints of shortness of breath with bilateral lower extremity edema over 1 week. Patient denies chest pain and palpitations. His ECG is a sinus rhythm. A chest xray reports mild cardiomegaly with pulmonary hypertension. A cardiac consultation was requested for CHF evaluation. Medications and Allergies Allergies Allergy/AdvReac Type Severity Reaction Status Date / Time No Known Allergies Allergy Verified 04/03/15 08:05 Home Medications Medication Instructions Recorded Confirmed Last Taken Type Furosemide [Lasix TAB] 40 mg PO 0600,1800 #60 tablet 04/08/15 06/03/16 02/26/17 Rx Famotidine [Pepcid] 20 mg PO QDAY #30 tablet 06/09/16 02/26/17 Rx Lisinopril [Zestril TAB] 40 mg PO QDAY #30 tablet 06/09/16 02/26/17 Rx Metoprolol [Lopressor TAB] 100 mg PO BID #60 tablet 06/09/16 02/26/17 Rx amLODIPine [Norvasc] 10 mg PO DAILY #30 tab 06/09/16 02/26/17 Rx Active Meds: Active Medications Acetaminophen (Tylenol) 650 mg PO Q4H PRN PRN Reason: Pain MILD(1-3)/Fever >100.5/ESPOSITO Bisacodyl (Dulcolax) 10 mg [place] QDAY PRN PRN Reason: Constipation unrelieved by MOM Famotidine (Pepcid) 20 mg PO QDAY [facility] Last Admin: 02/26/17 10:13 Dose: 20 mg Ferrous Sulfate (Feosol) 325 mg PO BID [facility] Last Admin: 02/26/17 10:12 Dose: 325 mg Furosemide (Lasix) 40 mg IV BID@0600,1800 [facility] Last Admin: 02/26/17 05:57 Dose: 40 mg Levofloxacin (Levaquin) 750 mg PO Q24H [facility] Lisinopril (Zestril) 40 mg PO QDAY [facility] Last Admin: 02/26/17 10:14 Dose: 40 mg Magnesium Hydroxide (Milk Of Magnesia) 30 ml PO Q4H PRN PRN Reason: Constipation Metoprolol Tartrate (Lopressor) 100 mg PO BID [facility] Last Admin: 02/26/17 10:13 Dose: 100 mg Ondansetron HCl (Zofran) 4 mg IV Q8H PRN PRN Reason: N/V unrelieved by Reglan Warfarin Sodium (Coumadin) 7.5 mg PO QDAY@1700 [facility] PRN Reason: Protocol Physical Examination Vital Signs Temp Pulse Resp BP Pulse Ox 100.3 F H 115 H 18 173/111 78 L 02/25/17 23:13 02/25/17 23:13 02/25/17 23:13 02/25/17 23:13 02/25/17 23:13 General appearance: no acute distress Cardiac: Positive: Reg Rate and Rhythm Lungs: Positive: Decreased Breath Sounds Neuro: Positive: Grossly Intact Extremities: Present: edema Results 02/25/17 23:50 02/25/17 23:50 Cardiac Enzymes 02/25/17 02/26/17 02/26/17 Range/Units 23:50 06:20 09:05 AST 19 (5-40) units/L CK-MB (CK-2) 3.2 3.8 3.8 (0.0-4.0) ng/mL Coagulation 02/26/17 Range/Units 00:00 PT 14.2 (12.2-14.9) Sec. INR 1.05 (0.87-1.13) APTT 31.1 (24.2-36.6) Sec. CBC 02/25/17 Range/Units 23:50 WBC 9.1 (4.5-11.0) K/mm3 RBC 6.55 H (3.65-5.03) M/mm3 Hgb 14.8 (11.8-15.2) gm/dl Hct 48.0 H (35.5-45.6) % Plt Count 130 L (140-440) K/mm3 Lymph # 1.5 (1.2-5.4) K/mm3 [place] # 1.0 H (0.0-0.8) K/mm3 Eos # 0.0 (0.0-0.4) K/mm3 Baso # 0.0 (0.0-0.1) K/mm3 Comprehensive Metabolic Panel 02/25/17 Range/Units 23:50 Sodium 143 (137-145) mmol/L Potassium 4.6 (3.6-5.0) mmol/L Chloride 97.8 L (98-107) mmol/L Carbon Dioxide 33 H (22-30) mmol/L BUN 14 (9-20) mg/dL Creatinine 0.7 L (0.8-1.5) mg/dL Glucose 82 (75-100) mg/dL Calcium 8.4 (8.4-10.2) mg/dL AST 19 (5-40) units/L ALT 15 (7-56) units/L Alkaline Phosphatase 71 (35-129) units/L Total Protein 7.4 (6.3-8.2) g/dL Albumin 4.1 (3.9-5) g/dL Assessment and Plan CHF Paroxysmal Aflutter in sinus rhythm on beta blockers for suppression Sleep apnea Morbid Obesity
--- NOTE | 2017-02-26 12:52 | Event Note ---
Date: 02/26/17 pt seen and examined will cont current Mx and plan as dictated in H/P
[2017-02-26] MEDS ORDERED: COUMADIN PO SCH (17:00)
--- NOTE | 2017-02-26 18:19 | Cat Scan Report ---
FINAL REPORT PROCEDURE: CT ANGIO CHEST TECHNIQUE: Computerized tomographic angiography of the chest was performed during the IV injection of iodinated nonionic contrast including image processing. The image data was postprocessed using 2-dimensional multiplanar reformatted (MPR) and 3-dimensional (MIP and/or volume rendered) techniques. HISTORY: Hypoxemia and tachycardia COMPARISON: No prior studies are available for comparison. FINDINGS: Pulmonary outflow tract, right and left main pulmonary arteries and their proximal branches: The pulmonary outflow tract right and left main pulmonary arteries are clear. No central pulmonary emboli are visualized the peripheral branches are suboptimally visualized due to some breathing motion artifact however appear clear. No filling defects are seen that would suggest pulmonary embolus. Pericardium: No evidence of pericardial effusion. Thoracic aorta: No evidence of aneurysmal dilatation or dissection. Coronary arteries: Are unremarkable. Mediastinum and hilar regions: Nonspecific subcentimeter lymph nodes are visualized. No pathologically enlarged lymph nodes or masses are identified. Lung Stewart: There is a small amount of dependent atelectasis. The lungs otherwise are clear. No infiltrates, masses or effusions are identified. Upper abdomen: Liver density mildly diffusely decreased consistent with fatty infiltration. No acute abnormalities are seen in the upper abdomen. The spleen is enlarged measuring 16 centimeters greatest diameter. Other: No acute bony abnormalities are identified IMPRESSION: No evidence of pulmonary embolus. Fatty infiltration of the liver. Splenomegaly. Minimal dependent atelectasis. No other abnormalities are seen.
[2017-02-27 01:20] LABS: BUN/Creatinine Ratio 26; Blood Urea Nitrogen 18 mg/dL (9-20); Calcium 8.5 mg/dL (8.4-10.2); Hemolysis Index 10
[2017-02-27 04:16] LABS: Alanine Aminotransferase 14 units/L (7-56); Albumin 4.4 g/dL (3.9-5); BUN/Creatinine Ratio 24; Blood Urea Nitrogen 19 mg/dL (9-20); Calcium 8.4 mg/dL (8.4-10.2); Hemolysis Index 9
[2017-02-27 05:48] LABS: Basophils # (Auto) 0.1 K/mm3 (0.0-0.1); Basophils % (Auto) 0.6 % (0.0-1.8); Eosinophils % (Auto) 0.1 % (0.0-4.3); Lymphocytes # (Auto) 1.7 K/mm3 (1.2-5.4); Lymphocytes % (Auto) 16.2 % (13.4-35.0); Mean Corpuscular HGB Conc 30 % (32-34); Mean Corpuscular Volume 75 fl (84-94); Monocytes # (Auto) 1.1 K/mm3 (0.0-0.8); Monocytes % (Auto) 10.2 % (0.0-7.3); Platelet Count 125 K/mm3 (140-440); Red Blood Count 7.18 M/mm3 (3.65-5.03); Red Cell Distribution Width 18.9 % (13.2-15.2)
[2017-02-27 06:01] LABS: INR 1.06 (0.87-1.13)
[2017-02-27 06:03] LABS: Hematocrit 53.8 % (35.5-45.6); Hemoglobin 16.4 gm/dl (11.8-15.2); Mean Corpuscular Hemoglobin 23 pg (28-32)
[2017-02-27] MEDS: LASIX IV SCH (06:07)
[2017-02-27] MEDS: LEVAQUIN PO SCH ×2 (06:09→07:33)
[2017-02-27] MEDS: PEPCID PO SCH (10:37)
[2017-02-27] MEDS: FEOSOL PO SCH (10:37)
[2017-02-27] MEDS: LOPRESSOR PO SCH (10:37)
[2017-02-27] MEDS: ZESTRIL PO SCH (10:37)
--- NOTE | 2017-02-27 12:10 | Progress Note ---
Assessment and Plan Diastolic CHF: He had mild exacerbation which has now improved. Paroxysmal Aflutter in sinus rhythm on beta blockers for suppression Sleep apnea Morbid Obesity Recommend: Cardiac status is stable. OK to discharge from cardiac perspective. Subjective Date of service: 02/27/17 Interval history: No cardiac complaints. Dyspnea is improved and he feels he is back at baseline. Objective Vital Signs Temp Pulse Pulse Resp BP BP Pulse Ox 02/27/17 10:00 94 02/27/17 08:45 20 91 02/27/17 07:38 102 H 02/27/17 05:56 98.4 F 106 H 22 147/86 86 02/27/17 00:23 98.9 F 74 20 157/99 95 02/26/17 21:55 81 162/96 02/26/17 21:22 99.5 F 81 18 162/96 92 02/26/17 20:30 87 20 02/26/17 19:37 120 H 02/26/17 16:24 97.6 F 20 L 20 167/102 93 02/26/17 15:47 97.6 F 79 20 167/102 93 02/26/17 12:30 98.8 F 83 20 169/103 94 - Physical Examination Cardiac: Positive: Reg Rate and Rhythm Lungs: Positive: clear to auscultation Neuro: Positive: Grossly Intact Abdomen: Positive: Active Bowel Sounds Extremities: Present: edema - Labs and Meds Cardiac Enzymes 02/27/17 Range/Units Unknown AST 16 (5-40) units/L Coagulation 02/27/17 Range/Units 05:42 PT 14.4 (12.2-14.9) Sec. INR 1.06 (0.87-1.13) CBC 02/27/17 Range/Units 05:42 WBC 10.3 (4.5-11.0) K/mm3 RBC 7.18 H (3.65-5.03) M/mm3 Hgb 16.4 H (11.8-15.2) gm/dl Hct 53.8 H (35.5-45.6) % Plt Count 125 L (140-440) K/mm3 Lymph # 1.7 (1.2-5.4) K/mm3 [place] # 1.1 H (0.0-0.8) K/mm3 Eos # 0.0 (0.0-0.4) K/mm3 Baso # 0.1 (0.0-0.1) K/mm3 Comprehensive Metabolic Panel 02/27/17 02/27/17 Range/Units 00:30 Unknown Sodium 142 144 (137-145) mmol/L Potassium 3.8 3.7 (3.6-5.0) mmol/L Chloride 93.2 L 93.0 L (98-107) mmol/L Carbon Dioxide 38 H 38 H (22-30) mmol/L BUN 18 19 (9-20) mg/dL Creatinine 0.7 L 0.8 (0.8-1.5) mg/dL Glucose 109 H 82 (75-100) mg/dL Calcium 8.5 8.4 (8.4-10.2) mg/dL AST 16 (5-40) units/L ALT 14 (7-56) units/L Alkaline Phosphatase 69 (35-129) units/L Total Protein 7.4 (6.3-8.2) g/dL Albumin 4.4 (3.9-5) g/dL - Imaging and Cardiology EKG: image reviewed
[2017-02-27 14:25] VITALS: BP 157/102
--- NOTE | 2017-02-27 14:57 | Discharge Summary ---
Providers - Providers Date of Admission: 02/26/17 03:04 Date of discharge: 02/27/17 Attending physician: KELVIN RIVERO 02/26/17 03:04 Consult to Physician [CONS] Routine Consulting Provider: SAMREEN PALOMARES Reason For Exam: chf Place consult to:: [facility] Notified:: y Comment:: added to list Primary care physician: YIFAN BRODY Hospitalization Reason for admission: diastolic heart failure, Condition: Stable Pertinent studies: Chest x-ray was unremarkable Echocardiogram that showed vascular failure with ejection fraction of 55-60% CT scan of the chest demonstrated fatty liver disease with no pulmonary embolism Procedures: none Hospital course: Pt is a 39-year-old man with a history of CHF, polycythemia vera, obstructive sleep apnea, A. fib, hypertension complaining of shortness of breath and swelling of his feet for 1 week. Also complaining of chest pain located in the epigastric area which he describes the tightness, intermittent in nature, no radiation, intensity 5/10, cannot identify exacerbating or relieving factors. He was admitted to telemetry and commenced on diuresis, beta blockerdue to fibrillation, strict inputs and outputs, aspirin and daily weights. Cardiology consult was obtained. Echocardiogram showed ejection fraction of 55-60% with diastolic dysfunction. CT scan of the chest showed no pulmonary embolism but had fatty liver disease. 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 Disposition: TO HOME OR SELFCARE Time spent for discharge: 32 mins Core Measure Documentation - Palliative Care Palliative Care/ Comfort Measures: Not Applicable - Core Measures Any of the following diagnoses?: heart failure - Heart Failure Discharge Requirements HAYDEN/ARB for LVSD if EF <40%: Yes Beta diane at discharge: Yes Exam - Physical Exam Narrative exam: Constitutional: Well-nourished, obese. male In no distress Head: Normocephalic atraumatic Eyes: Pupils are equal round and reactive to light Nose: No enlarged turbinates, no septal deviation. Mouth: Moist mucous membranes. Neck: Supple no thyromegaly. No bruit. No JVD Heart: Regular rate and rhythm, S1-S2 abnormal. No rubs murmurs or gallop Lungs: Clear to auscultation bilaterally no rales or rhonchi Abdomen: Soft nontender both his upper extremities no edema orclubbing. Extremities: No edema no cyanosis and no clubbing. Neuro: Alert oriented -3 Skin: No rashes no hyperemic spots - Constitutional Vitals: Temp Pulse Resp BP Pulse Ox 98.6 F 92 H 22 157/102 94 02/27/17 08:51 02/27/17 08:51 02/27/17 08:51 02/27/17 08:51 02/27/17 10:00 General appearance: Present: no acute distress, well-nourished - EENT Eyes: Present: PERRL - Neck Neck: Present: supple, normal ROM - Respiratory Respiratory effort: normal Respiratory: bilateral: CTA - Cardiovascular Heart Sounds: Present: S1 & S2. Absent: rub, click - Extremities Extremities: pulses symmetrical, No edema Peripheral Pulses: within normal limits - Abdominal General gastrointestinal: Present: soft, non-tender, non-distended, normal bowel sounds - Integumentary Integumentary: Present: clear, warm, dry - Musculoskeletal Musculoskeletal: gait normal, strength equal bilaterally - Psychiatric Psychiatric: appropriate mood/affect, intact judgment & insight - Neurologic Neurologic: CNII-XII intact, moves all extremities Plan Activity: advance as tolerated Diet: regular, low cholesterol, low salt Durable Medical Equipment Needed Upon Discharge: other Follow up with: YIFAN BRODY MD [Primary Care Provider] - 3-5 Days Forms: Warfarin Discharge Instruction Prescriptions: amLODIPine [Norvasc] 10 mg PO DAILY #30 tab Famotidine [Pepcid] 20 mg PO QDAY #30 tablet Ferrous Sulfate [Feosol 325 MG tab] 325 mg PO BID #60 tablet Furosemide [Lasix TAB] 40 mg PO 0600,1800 #60 tablet Levofloxacin [Levaquin TAB] 750 mg PO Q24H #5 tablet Levofloxacin [Levaquin] 750 mg PO QDAY #5 tablet Lisinopril [Zestril TAB] 40 mg PO QDAY #30 tablet Metoprolol [Lopressor TAB] 100 mg PO BID #60 tablet
== END 2017-02-27 16:21 | disposition home or self-care (01) | DRG 292 ==
LOC: ED 23:00 → 4A 02-26 03:04
PROVIDERS: ADMIT Internal Medicine; ATTEND Family Medicine
PROC: 4A033R1 Measurement of Arterial Saturation, Peripheral, Percutaneous Approach (ICD-10-PCS; principal; 2017-02-26)
DX: I11.0 Hypertensive heart disease with heart failure (principal); R65.10 Systemic inflammatory response syndrome (SIRS) of non-infectious origin without acute organ dysfunction; Z68.43 Body mass index [BMI] 50.0-59.9, adult; I48.92 Unspecified atrial flutter; I50.33 Acute on chronic diastolic (congestive) heart failure; G47.33 Obstructive sleep apnea (adult) (pediatric); D69.6 Thrombocytopenia, unspecified; I87.2 Venous insufficiency (chronic) (peripheral); E66.01 Morbid (severe) obesity due to excess calories; I48.91 Unspecified atrial fibrillation; K76.0 Fatty (change of) liver, not elsewhere classified; D45 Polycythemia vera; Z82.49 Family history of ischemic heart disease and other diseases of the circulatory system; Z87.891 Personal history of nicotine dependence; Z79.899 Other long term (current) drug therapy; Z79.01 Long term (current) use of anticoagulants
CPT/HCPCS: 36415; 36600; 71045; 71275; 80048; 80053; 82550; 82553; 82803; 83735; 83880; 84484; 85025; 85379; 85610; 85730; 87040; 87086; 93005; 93010; 93306; 93970; 94760; J1940; J2930; Q9967